=== PATIENT | female | born 1980 | race Caucasian/White ===

== ENCOUNTER → 2024-01-29 16:56 | Outpatient (REF) | payer BC, SELFPAY | LOC: RAD 16:56 | PROVIDERS: ATTENDING PHYSICIAN Physician Assistant; FAMILY PHYSICIAN Internal Medicine; OTHER PHYSICIAN Internal Medicine | DX: M54.50 Low back pain, unspecified (principal); M79.7 Fibromyalgia; M25.50 Pain in unspecified joint | CPT/HCPCS: 72100; 72200; 73130 ==

== ENCOUNTER 2024-08-09 18:43 | Inpatient (IN) | payer BC, SELFPAY ==
[2024-08-09 14:40] VITALS: BP 155/98
--- NOTE | 2024-08-09 15:23 | ED.GENMED ---
History of Present Illness
General
Chief Complaint: Back Pain
Source: patient
Exam Limitations: none
Time Seen by Provider: 08/09/24 14:59
Nursing documentation reviewed up to this point in time: agreed with
History of Present Illness
History of Present Illness:
43-year-old female with a past medical history of fibromyalgia, ankylosing spondylitis who presents to the emergency room for evaluation of low back pain and left leg weakness, left arm and leg numbness. Patient reports that she has been dealing
with chronic back pain related to ankylosing spondylitis. She takes multiple medications to control her pains including Tylenol and tramadol, as needed muscle relaxer. She says that this morning she woke up with acute worsening of her pain�she
says normally her pain is around a 5/10 and responds well to her medicines; she says that today her low back pain is 8/10 and did not respond to her medications. In addition she says that she has been dealing with the left leg weakness and
paresthesias for the past week or 2; she says she was referred to a neurologist for evaluation of this but has not yet seen anyone (appointment is in November). She says that this morning she woke up with an acute worsening of her left leg weakness
and numbness in her left leg. She says she is having difficulty walking due to the degree of weakness and numbness. She also reports that today she has been having some numbness in the left upper extremity most notably in the hand. She says that
this morning she was having some trouble expressing herself as well. She denies any headache. She denies any change in her vision. She has not had any saddle anesthesia. She denies any incontinence of her bowels. She says she occasionally has
incontinence when she sneezes or bears down with but no significant urinary incontinence. She denies any other complaints. She has not had any recent falls or trauma/injury.
Review of Systems
Review of Systems
All Other Systems: ROS reviewed and negative except as documented in HPI and ROS
Constitutional: Denies fever
Respiratory: Denies trouble breathing
Cardiac: Denies chest pain
ABD/GI: Denies abdominal pain
: Denies flank pain
Musculoskeletal: Reports back pain; Denies neck pain
Neurological: Reports weakness and numbness; Denies dizzy or headache
Phy Exam
Physical Exam
Physical Exam:
General: Awake, alert, oriented x3; appears uncomfortable
Head: Normocephalic, atraumatic
Eyes: Conjunctiva normal, subtle anisocoria with the right pupil slightly larger than left which is apparently baseline she says; pupils are briskly reactive to light bilaterally, extraocular movements are intact
Throat: Airway intact, handling secretions
Neck: Trachea midline, supple without meningismus
Lungs: Breathing comfortably no distress
Heart: Regular rate and rhythm
Abd: Soft, non distended, nontender
Back: She has some mild midline tenderness L5-S1, left paraspinal tenderness in this region as well, no right-sided tenderness
Neuro: Anisocoria as above but cranial nerves otherwise intact 2 through 12, speech fluid without dysarthria or aphasia, no limb ataxia; subjective sensory deficit distal left upper extremity and left lower extremity; on strength testing she has 5/5
strength proximally and distally in the upper extremities bilaterally; she has 5/5 strength maximally and distally right lower extremity; she has 4/5 strength on extension of the lower leg and dorsiflexion of the foot, 5/5 strength in plantarflexion
and 5/5 proximal strength in the hip on extension; DTRs intact bilaterally in the lower extremities
Skin: no rash
Extremities: No edema in extremities, equal pulses in all extremities
Scores
Heart Failure Risk
Heart Failure Risk Score: Not Applicable
Heart Score for Chest Pain Patients
STEMI patient?: Not applicable
Withdrawal Assessment of Alcohol
Withdrawal Assessment Completed?: Not applicable
Course
Orders/Labs/Results
Orders:
Orders
08/09/24 15:19
CT Head W/o Iv Contrast Urgent
Comment:
Reason For Exam: left arm and leg weakness
08/09/24 15:21
Ketorolac [Toradol] 15 mg IV NOW STA
Morphine Sulfate 4 mg IV NOW STA
08/09/24 15:22
NEUROLOGY CONSULT Urgent
Consulting Provider: Lupis Douglas
Was physician already notified: Yes
08/09/24 15:23
CT Lumbar Spine W/o Iv Contras Urgent
Comment:
Reason For Exam: worsening low back pain, LUE and LLE weakness/numb
08/09/24 15:30
Complete Blood Count/With Diff Urgent
Comprehensive Metabolic Panel Urgent
HCG, Serum Qualitative Screen Urgent
Comment: ADD ON
TSH Reflex To Free T4 Urgent
08/09/24 15:34
Electrocardiogram (*1) Urgent
Reason for Study: TIA/Stroke
EKG- Treatment ONCE
08/09/24 16:15
Add On- LAB Stat
Comments:: preg hcg for CT lumbar
Tests Added?: hcg preg.
08/09/24 17:26
MR Brain W/o & With Contrast Routine
Comment:
Reason For Exam: left sided weakness/senspry deficits
OK for patient to be off Cardiac Monitoring for MRI: No
Recent pill cam endoscopy?: No
08/09/24 17:35
B12 [Vitamin B12] Routine
CRP [C-Reactive Protein] Routine
ESR [Erythrocyte Sed Rate] Routine
Folate Routine
Vitamin B1, Whole Blood [S] Routine
Abnormal Lab Results
08/09/24
15:30
RBC 4.15 L 10^6/uL
(4.20-5.40)
MCH 31.8 H pg
(27.0-31.0)
Neutrophils % 41.8 L %
(42.2-75.2)
BUN 5 L mg/dl
(7-17)
08/09/24 15:30
08/09/24 15:30
Vital Signs
Initial and Last Documented VS:
Initial Vital Signs
Temp Pulse Resp BP Pulse Ox
36.9 C 81 18 155/98 98
08/09/24 14:40 08/09/24 14:40 08/09/24 14:40 08/09/24 14:40 08/09/24 14:40
Last Documented Vital Signs
Temp Pulse Resp BP Pulse Ox
36.9 C 72 16 131/67 99
08/09/24 14:40 08/09/24 16:00 08/09/24 16:00 08/09/24 16:00 08/09/24 16:00
MDM/Problems Addressed
Differential Diagnosis Includes:
Extensively back pain with left leg weakness and numbness which seem consistent with bulging/herniated disc and radiculopathy however left arm weakness/paresthesias and difficulty expressing herself would be atypical; must rule out stroke,
demyelinating disease, mass
MDM/Problems Addressed:
43-year-old female presents for evaluation of acute on chronic low back pain, subacute weakness in the left leg that became acutely worse this morning and now numbness in the left leg and arm. Hypertensive otherwise normal vitals. Physical exam as
above. No stroke alert activated given chronicity of symptoms but will plan to send for CT head. Will check labs including a CBC and a CMP, thyroid studies. Check CT of the lumbar region as well. Case discussed with neurology for evaluation.
Labs reviewed: CBC and CMP unremarkable. CT head shows no hemorrhage, small hypodensities in the putamen nonspecific. CT of the lumbar spine reviewed by me no acute pathology noted. Case discussed with neurology, recommended admission for further
workup including MRI to rule out demyelinating disease or stroke. Case discussed with hospitalist for admission.
Acute Exacerbation and/or Progression of Chronic Illness: HTN
*Radiology
Radiology exam reviewed: radiology read reviewed
*Pulse Oximetry
Patient hypoxic: no
*Critical Care Note
Total Time (30-74mins, 75-104mins- exclusive of procedures): Not Applicable
Data Reviewed
Source: patient and records
Patient Management
Discussion with other providers: Hospitalist (Discussed with hospitalist) and [facility] (Case discussed with neurology)
Escalation/DeEscalation of care consider admission/obs:
Admission indicated
ED Attending Note
-
Portions of this chart may have been created with voice recognition software.� Occasional wrong word or��sound alike� substitutions may have occurred due to the inherent limitations of voice recognition software.
Discharge Plan
Departure
Patient Disposition: Admit
Date of Disposition: 08/09/24
Time of Disposition: 17:51
Admit to doctor: Kristi
Presentation/result/management discussed w/ accepting MD/DO: Hospitalist
Discharge Problem:
Left-sided weakness, Acute on chronic low back pain
Prescriptions:
No Action
pantoprazole 40 mg tablet,delayed release (DR/EC)
40 mg PO DAILY 14 Days Qty: 14 0RF
Referrals:
Chavo Currie MD [Family Provider] -
Interventions
Interventions:
*Risk Screen - Suicide Last Done: 08/09/24 14:40
*General Assessment Last Done: 08/09/24 14:40
*Neglect/Abuse Screening Last Done: 08/09/24 14:40
ED- Fall Risk Assessment Last Done: 08/09/24 14:50
ED-Musculoskeletal Assessment Last Done: 08/09/24 14:50
ED- Neurological Assessment Last Done: 08/09/24 14:50
Discharge Date and Time
Print Language: BULGARIAN
[2024-08-09] MEDS: TORADOL 15 MG IV (15:37)
[2024-08-09] MEDS: MORPHINE SULFATE 4 MG IV (15:37)
[2024-08-09 15:38] LABS: % Basophils 1.6 % (0-2); % Eosinophils 4.6 % (0-6); % Immature Granulocytes 0.1 % (0-0.5); % Lymphocytes 43.5 % (20.5-51.1); % Monocytes 8.4 % (1.7-9.3); % Neutrophils 41.8 % (42.2-75.2); Absolute Basophils 0.1 10^3/uL (0-0.2); Absolute Eosinophils 0.3 10^3/uL (0-0.7); Absolute Monocytes 0.6 10^3/uL (0.1-0.6); Absolute Neutrophils 2.9 10^3/uL (1.4-6.5); Hemoglobin 13.2 g/dL (12.0-16.0); Mean Corp Hgb Conc. 35.7 g/dL (33.0-37.0); Mean Corpuscular Hgb 31.8 pg (27.0-31.0); Mean Corpuscular Volume 89.2 fL (81.0-99.0); Mean Platelet Volume 9.6 fL (7.4-10.4); Nucleated Red Blood Cells % 0 %; Platelet Count 208 10^3/uL (130-400); Red Blood Cell Count 4.15 10^6/uL (4.20-5.40); Red Cell Dist. Width 11.7 % (11.5-14.5); White Blood Cell Count 6.9 10^3/uL (4.8-10.8)
[2024-08-09 15:59] LABS: ALT (SGPT) 25 U/L (0-35); AST (SGOT) 25 U/L (14-36); Albumin 4.8 g/dl (3.5-5.0); Alkaline Phosphatase 41 U/L (38-126); Blood Urea Nitrogen 5 mg/dl (7-17); Calcium 9.8 mg/dl (8.4-10.2); Carbon Dioxide 28 mmol/L (22-30); Chloride 103 mmol/L (98-107); Glucose 79 mg/dl (70-99); Potassium 4.2 mmol/L (3.5-5.1); Sodium 141 mmol/L (135-145); Total Bilirubin 0.4 mg/dl (0.2-1.3); eGFR > 60.00
[2024-08-09 16:00] VITALS: BP 131/67
[2024-08-09 16:31] LABS: TSH Reflex To Free T4 0.66 uIU/ml (0.47-4.68)
--- NOTE | 2024-08-09 16:37 | CON.NEURO ---
Consultation
Order
Date of Consultation: 08/09/24
Requesting Provider:
Reason for Consult: Leg numbness, expressive aphasia,
CC: left weakness
HPI: This is a 43-year-old woman who presented to [facility] on August 09, 2024 with with motor and sensory deficits
Ms. Panda states that she developed gradual weakness in the left leg following initiation of Humira that she stopped a month ago. She states starting a week ago her left leg became weak, making walking difficult. She endorses worsening of
chronic lower back pain worse with torso extension, standing and walking. She also experiences tingling in the left toes and II-V digits of the left hand. Current pain management includes high-dose of NSAIDs, Lyrica 25, Tylenol and tramadol.
Ms. Panda admits chronic urinary urgency, going to the bathroom about 15 times a day and waking up once or twice at night. She recently experienced urinary incontinence while talking to someone. She denies any numbness in the right leg, changes
in swallowing, or recent vaccinations.
LS spine, SI XR(12/29/2023)-mild degenerative changes of the bilateral sacroiliac joints.
Minimal disc space narrowing at L5-S1.
ER VS: 155/98, 81, afebrile.
EKG: NSR, QTc Int : 427 ms.
ER MAR: Ketorolac�15 mg, morphine sulfate�4 mg
PDMP:Clonazepam 1 Mg�60 mg filled in on 07/31/2024, 05/21/2024, 04/20/2024, 03/06/2024
Pregabalin 25 Mg 60 caps filled in on 08/04/2024
Tramadol Hcl 50 Mg 90 tabs filled in on 07/16/2024, 05/27/2024
Labs: Normal WBCs, glucose, GFR, TSH. Beta-hCG�pending
PMH: ankylosing spondylitis, Ig A deficiency, bipolar DO, ZION, ETOh addiction in remission
PSH:none
SH: ; active smoker- 6-8 cigarettes per day;
FH:RA, SLE
All:NKDA
ROS:Constitutional: Negative. Negative for chills, fever and unexpected weight change.
HENT: Positive for left hearing impairment
Eyes: Negative. Negative for photophobia, pain and visual disturbance.
Respiratory: Negative for cough, choking and shortness of breath.
Cardiovascular: Negative for chest pain, palpitations and leg swelling.
Gastrointestinal: Negative for abdominal pain and vomiting.
Endocrine: Negative. Negative for cold intolerance.
Genitourinary: Positive for urinary urgency, incontinence
Musculoskeletal: Positive for chronic back pain
Skin: Negative for rash.
Allergic/Immunologic: Negative. Negative for immunocompromised state.
Neurological: Positive for left leg weakness and left leg and arm numbness, imbalance, R ptosis
General: Well developed. In no acute distress.
Cardio: Regular rate and rhythm without murmur. Extremities are without cyanosis or edema.
Neuro:
Mental Status: Alert, oriented to person, place, and date. Normal attention and recall. Good fund of knowledge. Follows complex requests across the midline. Comprehension, naming, and repetition intact. Immediate and delayed recall 3/3.
Cranial Nerves: . Pupils are equally round and reactive to light. EOMs full. Visual kong full to confrontation. Mild right ptosis. No nystagmus. V1-V3 intact to light touch and pinprick bilaterally, symmetric. Face symmetric. Normal hearing
AU. The palate elevated well. SCMs and traps 5/5. Tongue midline. No dysarthria.
Motor: Normal bulk and tone. No pronator or arm drift. Strength 5/5 throughout except for left proximal leg weakness (partially pain limited). No clonus.
Reflexes: 2+ throughout the upper extremities and 3+knees. 2/2 in AJs. Plantar responses flexor bilaterally. Negative Pat's bilaterally
Sensory: Normal vibration at the toes
Coordination: No dysmetria or tremor.
Gait: deferred
Assessment and Plan:
I. Left hemisensory motor deficits. Rule out [employer] demyelinating disease
II. Ankylosing spondylitis, female
III. Chronic back pain
-Fall precautions
-Please obtain brain MRI with and without gadolinium
-Titrate Lyrica by 25 mg as tolerated
-Please check vitamin B12, thiamine, ESR, CRP
- PT
-Will follow
I personally reviewed all radiology and labs along with past medical records pertinent to current medical problems. Total time spent in patient care is 60 minutes.
Thank you for allowing us to participate in the care of this patient. We will continue to follow. Please do not hesitate to contact us with any questions or concerns.
Subjective/Objective
Subjective Data
Date of Service: August 09, 2024
Objective Data
Vital Signs
Temp Pulse Resp BP Pulse Ox
36.9 C 81 18 155/98 98
08/09/24 14:40 08/09/24 14:40 08/09/24 14:40 08/09/24 14:40 08/09/24 14:40
Lab Results
08/09/24 15:30
08/09/24 15:30
Sodium 141 mmol/L (135-145) 08/09/24 15:30
Potassium 4.2 mmol/L (3.5-5.1) 08/09/24 15:30
BUN 5 mg/dl (7-17) L 08/09/24 15:30
Glucose 79 mg/dl (70-99) 08/09/24 15:30
Calcium 9.8 mg/dl (8.4-10.2) 08/09/24 15:30
Patient Allergies
gluten Allergy (Verified 08/09/24 14:39)
Unknown
Medications
-
Home Medications
�Medication �Instructions �Recorded
pantoprazole 40 mg tablet,delayed 40 mg PO DAILY 14 days #14 tabs 06/26/22
release
Vital Signs and Labs
-
Vital Signs and Labs:
Vital Signs
Temp Pulse Resp BP Pulse Ox
36.9 C 72 16 131/67 99
08/09/24 14:40 08/09/24 16:00 08/09/24 16:00 08/09/24 16:00 08/09/24 16:00
Lab Results
08/09/24 15:30
08/09/24 15:30
Sodium 141 mmol/L (135-145) 08/09/24 15:30
Potassium 4.2 mmol/L (3.5-5.1) 08/09/24 15:30
BUN 5 mg/dl (7-17) L 08/09/24 15:30
Glucose 79 mg/dl (70-99) 08/09/24 15:30
Calcium 9.8 mg/dl (8.4-10.2) 08/09/24 15:30
Home Medications
-
Home Medications
pantoprazole 40 mg tablet,delayed release 40 mg PO DAILY 14 days #14 tabs 06/26/22
[2024-08-09 16:41] LABS: HCG, Serum Qualitative Screen Negative
[2024-08-09 18:00] VITALS: BP 124/87
[2024-08-09 18:03] LABS: C-Reactive Protein < 5.00 mg/L (0.0-10.00)
[2024-08-09 18:09] LABS: Erythrocyte Sed Rate 7 mm/hour (0-20)
--- NOTE | 2024-08-09 18:20 | HPS.HSE ---
Addendum entered and electronically signed by Sarath Berry MD 08/09/24 18:33:
Allergies
Allergy/AdvReac Type Severity Reaction Status Date / Time
gluten Allergy Unknown Verified 08/09/24 14:39
Home Medications
acetaminophen 325 mg tablet (Tylenol) 650 mg PO Q6HPRN PRN mild pain 08/09/24
ascorbic acid (vitamin C) 500 mg tablet (Vitamin C) 500 mg PO DAILY 08/09/24
buspirone 10 mg tablet 10 mg PO HS 08/09/24
calcium carbonate (Tums) 200 mg PO BIDPRN PRN gerd 08/09/24
calcium polycarbophil 625 mg tablet (FiberCon) 625 mg PO DAILY 08/09/24
cholecalciferol (vitamin D3) 25 mcg (1,000 unit) tablet (Vitamin D3) 25 mcg PO DAILY 08/09/24
clonazepam 1 mg tablet 1 mg PO BIDPRN PRN anxiety 08/09/24
escitalopram oxalate 10 mg tablet (Lexapro) 10 mg PO DAILY 08/09/24
lamotrigine 200 mg tablet (Lamictal) 200 mg PO DAILY 08/09/24
loperamide 2 mg tablet 2 mg PO Q4HPRN PRN gluten allergy 08/09/24
nabumetone 500 mg tablet 500 mg PO BID 08/09/24
pregabalin 25 mg capsule (Lyrica) 25 mg PO BID 08/09/24
sumatriptan succinate 50 mg tablet (Imitrex) 0 mg PO .COMPLEX 08/09/24
tizanidine 4 mg tablet 4 mg PO BIDPRN PRN muscle pains 08/09/24
tramadol 50 mg tablet 50 mg PO Q8HPRN PRN moderate pains 08/09/24
trazodone 50 mg tablet 50 mg PO HSPRN PRN sleep 08/09/24
turmeric 400 mg capsule 400 mg PO DAILY 08/09/24
vitamin B complex 1 tab PO DAILY 08/09/24
vitamin K2 45 mcg capsule 45 mcg PO DAILY 08/09/24
Original Note:
Family Physician
-
Family Physician: Chavo Currie
Chief Complaint
-
left sided weakness
History of Present Illness
43-year-old female past medical history of fibromyalgia, ankylosing spondylitis, lumbar degenerative disc disease with left-sided sciatica, chronic lower back pain, chronic urinary urgency, IgA deficiency, bipolar disorder, generalized anxiety
disorder, former alcohol use disorder in remission, presenting for leg numbness and expressive aphasia.
Patient has been having chronic lower back pain over the past 1-1/2-year and saw a rheumatology and was diagnosed with ankylosing spondylitis for which she was started on Humira which she was taking for 4 months. Around 2 weeks ago Humira was
stopped because she started having weakness of the left lower leg with flatness of the foot inhibiting walking. She was also having intermittent numbness and tingling of the leg as well as intermittent numbness and tingling of the left hand.
This morning she woke up with severe pain across her lower back with radiation down her left leg as well as numbness of the left leg.
She denied any difficulty speaking or swallowing. Denies any facial droop. Denied headache or visual symptoms.
She has chronic urinary urgency but this has gotten worse over the past few weeks and sometimes leaks urine. Denies any stool incontinence. Denies difficulty urinating.
She is a former alcoholic but has not drank alcohol in 7-month. She smokes under half a pack of cigarettes per day. She denies drugs.
She denies any family history of neurological symptoms but does have a family history of autoimmune disorders including rheumatoid arthritis and lupus.
Medical History
Past Medical History
Past Medical History: Reports Other ( fibromyalgia, ankylosing spondylitis, lumbar degenerative disc disease with left-sided sciatica, chronic lower back pain, chronic urinary urgency, IgA deficiency, bipolar disorder, generalized anxiety disorder,
former alcohol use disorder in remission)
Past Surgical History: Reports Other (wisdom teeth )
Social History
Tobacco: Smoker
Drug: None
Family History
Family History: Other (rheumatoid arthritis and lupus.)
Allergies / Home Medications
Allergies reflects when Allergies were last updated in [facility].
Home Medications with original date entered in [facility]
Allergy/Medication List:
Allergies
Allergy/AdvReac Type Severity Reaction Status Date / Time
gluten Allergy Unknown Verified 08/09/24 14:39
Review of Systems
-
History Source: Patient
A 12 point ROS was completed and negative except as noted: Yes
Constitutional: Reports No Symptoms
EENT: Reports No Symptoms
Respiratory: Reports No Symptoms
Cardiac: Reports No Symptoms
Abdomen/GI: Reports No Symptoms
: Reports No Symptoms
Musculoskeletal: Reports No Symptoms
Skin: Reports No Symptoms
Neurological: Reports See HPI
Endocrine: Reports No Symptoms
Hematologic/Lymphatic: Reports No Symptoms
Psych: Reports No Symptoms
Physical Exam
Vital Signs
Vital Signs
Temp Pulse Resp BP Pulse Ox
98.5 F 72 16 131/67 99
08/09/24 14:40 08/09/24 16:00 08/09/24 16:00 08/09/24 16:00 08/09/24 16:00
Physical Exam
General: Well Developed, Well Nourished and No Apparent Distress
HEENT: NormoCephalic, Moist mucous membranes and Atraumatic
Respiratory: Clear
Cardiac: S1/S2 and Regular Rhythm; No Murmur or Rub
GI: Soft, Non Tender, Non Distended and Normal Bowel Sounds; No Organomegaly
Rectal: Deferred by Provider
Musculoskeletal: No Clubbing, No Cyanosis and No Edema
Skin: No Rash
Neuro: Other (left sided upper and lower extremity weakness )
Laboratory Results
-
08/09/24 15:30
08/09/24 15:30
Laboratory Results
Total Bilirubin 0.4 mg/dl (0.2-1.3) 08/09/24 15:30
AST 25 U/L (14-36) 08/09/24 15:30
ALT 25 U/L (0-35) 08/09/24 15:30
Alkaline Phosphatase 41 U/L (38-126) 08/09/24 15:30
Data Reviewed
-
Lab Data: Labs Reviewed by me
Old Records: Reviewed
Impression/Plan
-
IMPRESSION:
PLAN:
# Left-sided hemisensory motor/ sensory deficits concerning for CVA versus demyelinating disorder
-CT head shows small hypodensities adjacent to the bilateral putamen nonspecific which could be infarctions
-Lumbar spine CT result pending
-Check MRI brain with and without contrast
-Check B12, thiamine, ESR/CRP
-PT/OT
-Neurology following
Ankylosing spondylitis/chronic back pain
-Previously on Humira which was discontinued 2 weeks ago due to symptoms
History of lumbar degenerative disc disease with left-sided sciatica
-Has received spinal epidural injections in the past
-Continue nabumetone
Fibromyalgia
-Continue pregabalin, tramadol
Chronic urinary urgency
-Bladder scan to evaluate for neurogenic bladder
IgA deficiency
-Not on treatment
Bipolar disorder
-Continue Lamictal
Generalized anxiety disorder
-Continue Lexapro, trazodone, BuSpar
Former alcohol use disorder in remission
Active smoker
Full code
DVT prophylaxis�SCDs
Regular diet
[2024-08-09 19:09] LABS: Folate 12.1 ng/ml (2.76-20); Vitamin B12 710 pg/ml (239-931)
[2024-08-09 19:49] VITALS: BP 132/92; BMI 20.4
[2024-08-09] MEDS: ZANAFLEX 4 MG PO (20:17)
[2024-08-09] MEDS: LYRICA 25 MG PO (20:17)
[2024-08-09] MEDS: ULTRAM 50 MG PO (20:17)
[2024-08-09] MEDS: BUSPAR 10 MG PO (20:17)
[2024-08-09] MEDS: RELAFEN 500 MG PO (20:38)
[2024-08-09 23:30] VITALS: BP 104/56
[2024-08-10] VITALS (8 sets, daily range): BP systolic 99–114; BP diastolic 65–75; PULSE 62–63; O2SAT 99
[2024-08-10] MEDS: TYLENOL 650 MG PO ×2 (01:16→08:10)
[2024-08-10] MEDS: KLONOPIN 1 MG PO (01:18)
[2024-08-10] MEDS: ULTRAM 50 MG PO ×2 (04:18→12:18)
[2024-08-10 06:07] LABS: % Basophils 1.5 % (0-2); % Eosinophils 4.6 % (0-6); % Immature Granulocytes 0.2 % (0-0.5); % Lymphocytes 49.9 % (20.5-51.1); % Neutrophils 34.8 % (42.2-75.2); Absolute Basophils 0.1 10^3/uL (0-0.2); Absolute Eosinophils 0.2 10^3/uL (0-0.7); Absolute Monocytes 0.4 10^3/uL (0.1-0.6); Absolute Neutrophils 1.4 10^3/uL (1.4-6.5); Hematocrit 34.9 % (37.0-47.0); Hemoglobin 12.6 g/dL (12.0-16.0); Mean Corp Hgb Conc. 36.1 g/dL (33.0-37.0); Mean Corpuscular Hgb 32.9 pg (27.0-31.0); Mean Corpuscular Volume 91.1 fL (81.0-99.0); Mean Platelet Volume 9.7 fL (7.4-10.4); Nucleated Red Blood Cells % 0 %; Platelet Count 175 10^3/uL (130-400); Red Blood Cell Count 3.83 10^6/uL (4.20-5.40); Red Cell Dist. Width 11.5 % (11.5-14.5); White Blood Cell Count 4.1 10^3/uL (4.8-10.8)
[2024-08-10 06:41] LABS: ALT (SGPT) 21 U/L (0-35); AST (SGOT) 23 U/L (14-36); Albumin 3.9 g/dl (3.5-5.0); Alkaline Phosphatase 34 U/L (38-126); Blood Urea Nitrogen 5 mg/dl (7-17); Calcium 9.4 mg/dl (8.4-10.2); Carbon Dioxide 27 mmol/L (22-30); Chloride 104 mmol/L (98-107); Estimated Creatinine Clearance 84 ml/min; Glucose 75 mg/dl (70-99); Potassium 4.1 mmol/L (3.5-5.1); Sodium 138 mmol/L (135-145); Total Bilirubin 0.6 mg/dl (0.2-1.3); Total Protein 5.9 g/dl (6.3-8.2); eGFR > 60.00
[2024-08-10] MEDS: RELAFEN 500 MG PO ×2 (08:04→20:21)
[2024-08-10] MEDS: LAMICTAL 200 MG PO (08:04)
[2024-08-10] MEDS: VITAMIN D3 (cholecalciferol) 25 MCG PO (08:05)
[2024-08-10] MEDS: VITAMIN C 500 MG PO (08:05)
[2024-08-10] MEDS: LEXAPRO 10 MG PO (08:05)
[2024-08-10] MEDS: FIBERCON 625 MG PO (08:05)
[2024-08-10] MEDS: LYRICA 25 MG PO ×2 (08:05→20:20)
[2024-08-10] MEDS: B COMPLEX w/VITAMIN C 1 CAPLET PO (08:06)
[2024-08-10] MEDS: ZANAFLEX 4 MG PO ×2 (08:10→20:26)
--- NOTE | 2024-08-10 10:24 | W.PN.HOSP.TC ---
Today's Communication/Plan
-
Impression:
43 female past ministry of fibromyalgia, ankylosing spondylitis, lumbar degenerative disc disease with left-sided sciatica, chronic lower back pain, chronic urinary urgency, JUAREZ deficiency, bipolar disorder presents for left leg numbness and
expressive aphasia.
Plan:
#Left-sided hemisensory motor deficits concerning for CVA versus demyelinating disorder
Symptoms and presentation are concerning for multiple sclerosis
CT head showing small hypodensities adjacent to bilateral putamen, nonspecific could be infarctions
Lumbar spine CT demonstrated mild to moderate canal stenosis, with asymmetric left disc bulge
Brain MRI with and without contrast demonstrated no acute intracranial abnormality, no acute infarct. See data section
Neurology following
Plan/workup per neurology
PT OT
B12, folate, CRP all within normal limits
Vitamin D level pending
#Ankylosing spondylitis/chronic lower back pain
Previously on Humira, discontinued 2 weeks ago due to side effects
Pain management with tramadol 50 every 8 as needed
#Lumbar disc degenerative disease with left-sided sciatica
CT scan is consistent with known history
Has received spinal epidural injections in the past
Continue nabumetone
#Fibromyalgia
Continue home pregabalin and tramadol
#Chronic urinary urgency
Bladder scan pending to evaluate for neurogenic bladder
#IgA deficiency
Not currently on treatment
#Bipolar disorder
Continue home Lamictal
#General Anxiety disorder
Continue home Lexapro, trazodone, BuSpar
Full code
DVT prophylaxis SCDs
Regular diet
Data:
Head CT without contrast
No acute intracranial hemorrhage.
There are small hypodensities adjacent to the bilateral putamen which are nonspecific. These may represent prominent perivascular spaces however small infarctions could appear similar.
Lumbar spine CT
There is degenerative disc disease at L4-L5 and L5-S1.
At L4-L5 there is mild/moderate canal stenosis and mild bilateral neuroforaminal narrowing.
At L5-S1 there is asymmetric to left disc bulge with resultant mild canal stenosis, left lateral recess narrowing and mild left-sided neuroforaminal narrowing.
Brain MRI with and without contrast
No acute intracranial abnormality. No acute infarct. Findings likely reflecting slightly prominent perivascular spaces associated with the basal ganglia, bilaterally. Remote insult/infarct with encephalomalacia felt to be less likely.
Assessment / Plan
Assessment / Plan
Anticipated Discharge: Within 24 hours
Subjective/Interval History
-
Date of Service: August 10, 2024
No acute events overnight, patient still endorsing numbness in hands
Objective Data
-
Labs:
Laboratory Results
08/10/24
05:56
WBC 4.1 L
Hgb 12.6
Hct 34.9 L
Plt Count 175
Sodium 138
Potassium 4.1
Chloride 104
Carbon Dioxide 27
BUN 5 L
Creatinine 0.8
Glucose 75
Calcium 9.4
Total Bilirubin 0.6
AST 23
ALT 21
Alkaline Phosphatase 34 L
Vital Signs:
Vital Signs
Temp Pulse Resp BP Pulse Ox
97.8 F 58 16 106/67 97
08/10/24 07:15 08/10/24 07:15 08/10/24 07:15 08/10/24 07:15 08/10/24 07:15
I&O
08/09/24 08/10/24 08/11/24
07:59 06:59 06:59
Intake Total
Balance
Review of Systems
-
History Source: Patient
Constitutional: Reports No Symptoms
EENT: Reports Blurry Vision and Other (Right sided ear fullness)
Respiratory: Reports No Symptoms
Cardiac: Reports No Symptoms
Abdomen/GI: Reports No Symptoms
Neuro: Reports Numbness
Physical Exam
-
General: Well Developed, Well Nourished, No Apparent Distress, Comfortable and Conversant
Respiratory: Clear to Auscultation
Cardiac: Regular Rhythm and S1/S2
GI: Soft, Nontender and Nondistended
Skin: Warm and Dry
Neuro: Awake, Alert, Oriented, AO x 3, Central Nerve's Intact, No Sensory Deficits and Other (Left sided weakness compared to right on dorsi and plantarflexion, and hip flexion. Upper extremities equal in strength. Sensation equal throughout)
Psych: Calm and Intact Judgement/Insight
Data Reviewed
-
CT Scan: Report Reviewed by me and Discussed with Physician
MRI: Report Reviewed by me and Discussed with Physician
Labs: Labs Reviewed by me and Discussed with Physician
--- NOTE | 2024-08-10 13:13 | CM ---
CM following re: discharge planning.
Reviewed pt's chart, met with pt.
Pt is a 43 year old female admitted with primary dx of Left-sided hemisensory motor deficits concerning for CVA versus demyelinating disorder. MRI today.
Pt reports she lives with and 3 children 6,9 and 11 year of age in a 2SH, 2 steps to enter. pt described herself as independent in all areas [employer], drives, works.
PCP: Chavo Currie
Pharmacy: [facility]
D/C plan: home no needs. family to transport.
CM will follow with discharge plan updates as hospitalization progresses
--- NOTE | 2024-08-10 15:51 | W.PN.NEURO.1 ---
Today's Communication / Plan
-
.
Subjective/Objective
Subjective Data
Date of Service: August 10, 2024
Neurology follow-up note
Ms. Panda states that her left leg numbness has resolved. She continues to have back pain and left leg weakness. Brain MRI sw/wo tanya howed no acute infarcts and prominent perivascular spaces in BL basal ganglia.
LS spine MRI wo tanya-no significant neuroforaminal stenosis
Labs: Normal TSH, folate, vitamin B12�710.
PMH: ankylosing spondylitis, Ig A deficiency, bipolar DO, TANYA, ETOh addiction in remission
PSH:none
SH: ; active smoker- 6-8 cigarettes per day;
FH:RA, SLE
All:NKDA
ROS:Constitutional: Negative. Negative for chills, fever and unexpected weight change.
HENT: Positive for left hearing impairment
Eyes: Negative. Negative for photophobia, pain and visual disturbance.
Respiratory: Negative for cough, choking and shortness of breath.
Cardiovascular: Negative for chest pain, palpitations and leg swelling.
Gastrointestinal: Negative for abdominal pain and vomiting.
Endocrine: Negative. Negative for cold intolerance.
Genitourinary: Positive for urinary urgency, incontinence
Musculoskeletal: Positive for chronic back pain
Skin: Negative for rash
Neurological: Positive for left leg weakness
General: Well developed. In no acute distress.
Cardio: Regular rate and rhythm without murmur. Extremities are without cyanosis or edema.
Neuro:
Mental Status: Alert, oriented to person, place, and date. Normal attention and recall. Good fund of knowledge. Follows complex requests across the midline. Comprehension, naming, and repetition intact. Immediate and delayed recall 3/3.
Cranial Nerves: . Pupils are equally round and reactive to light. EOMs full. Visual kong full to confrontation. No nystagmus. V1-V3 intact to light touch and pinprick bilaterally, symmetric. Face symmetric. Normal hearing AU. The palate
elevated well. SCMs and traps 5/5. Tongue midline. No dysarthria.
Motor: Normal bulk and tone. No pronator or arm drift. Strength 5/5 throughout except for left proximal leg weakness (partially pain limited). No clonus.
Reflexes: 2+ throughout the upper extremities and 3+knees. 2/2 in AJs. Plantar responses flexor bilaterally. Negative Pat's bilaterally
Sensory: Normal vibration at the toes
Coordination: No dysmetria or tremor.
Gait: normal stance, base, arm swing. Able to arise from kneeling position.
Assessment and Plan:
I. Left hemisensory deficits.
II. Ankylosing spondylitis, female
III. Chronic back pain, subjective left leg pain
-Fall precautions
-Please obtain brain MRI with and without gadolinium
-Titrate Lyrica by 25 mg as tolerated
-Please f/u vit B1, MG panel
-C spine MRI wo tanya
-OP NCS/EMG of LUE/LE
-Will follow
I personally reviewed all radiology and labs along with past medical records pertinent to current medical problems. Total time spent in patient care is 35 minutes.
Thank you for allowing us to participate in the care of this patient. We will continue to follow. Please do not hesitate to contact us with any questions or concerns.
Objective Data
Vital Signs
Temp Pulse Resp BP Pulse Ox
36.4 C 58 16 109/71 100
08/10/24 11:27 08/10/24 11:27 08/10/24 11:27 08/10/24 11:27 08/10/24 11:27
Lab Results
08/10/24 05:56
08/10/24 05:56
Sodium 138 mmol/L (135-145) 08/10/24 05:56
Potassium 4.1 mmol/L (3.5-5.1) 08/10/24 05:56
BUN 5 mg/dl (7-17) L 08/10/24 05:56
Glucose 75 mg/dl (70-99) 08/10/24 05:56
Calcium 9.4 mg/dl (8.4-10.2) 08/10/24 05:56
Vitamin B12 710 pg/ml (490-507) 08/09/24 17:35
Patient Allergies
gluten Allergy (Verified 08/09/24 14:39)
Unknown
Vital Signs and Labs
-
Vital Signs and Labs:
Vital Signs
Temp Pulse Resp BP Pulse Ox
36.4 C 58 16 109/71 100
08/10/24 11:27 08/10/24 11:27 08/10/24 11:27 08/10/24 11:27 08/10/24 11:27
Lab Results
08/10/24 05:56
08/10/24 05:56
Sodium 138 mmol/L (135-145) 08/10/24 05:56
Potassium 4.1 mmol/L (3.5-5.1) 08/10/24 05:56
BUN 5 mg/dl (7-17) L 08/10/24 05:56
Glucose 75 mg/dl (70-99) 08/10/24 05:56
Calcium 9.4 mg/dl (8.4-10.2) 08/10/24 05:56
Vitamin B12 710 pg/ml (582-917) 08/09/24 17:35
Medications
-
Medications:
Generic Name Dose Route Start Last Admin
Trade Name Freq PRN Reason Stop Dose Admin
Acetaminophen 650 mg 08/09/24 19:25 08/10/24 08:10
Acetaminophen 325 Mg Tablet PO 09/06/24 19:24 650 mg
Q4HPRN PRN Administration
mild pain/PERRIN/temp> 100.4F
Ascorbic Acid 500 mg 08/10/24 08:00 08/10/24 08:05
Ascorbic Acid 500 Mg Tablet PO 12/01/24 07:59 500 mg
DAILY AMARILIS Administration
Buspirone HCl 10 mg 08/09/24 22:00 08/09/24 20:17
Buspirone 10 Mg Tablet PO 09/06/24 21:59 10 mg
HS AMARILIS Administration
Calcium Carbonate 200 mg 08/09/24 19:25
Calcium Antacid 200 Mg (Calcium Carbonate 500 Mg) Chew Tablet PO 09/06/24 19:24
BIDPRN PRN
gerd
Calcium Polycarbophil 625 mg 08/10/24 08:00 08/10/24 08:05
Calcium Polycarbophil 625 Mg Tablet PO 09/07/24 07:59 625 mg
DAILY AMARILIS Administration
Cholecalciferol 25 mcg 08/10/24 08:00 08/10/24 08:05
Cholecalciferol (Vitamin D3) 25 Mcg Tablet (1,000 Units) PO 09/07/24 07:59 25 mcg
DAILY AMARILIS Administration
Clonazepam 1 mg 08/09/24 19:25 08/10/24 01:18 EDT
Clonazepam 1 Mg Tablet PO 09/06/24 19:24 1 mg
BIDPRN PRN Administration
anxiety
Escitalopram Oxalate 10 mg 08/10/24 08:00 08/10/24 08:05
Escitalopram 10 Mg Tablet PO 09/07/24 07:59 10 mg
DAILY AMAIRLIS Administration
Lamotrigine 200 mg 08/10/24 08:00 08/10/24 08:04
Lamotrigine 100 Mg Tablet PO 09/07/24 07:59 200 mg
DAILY AMARILIS Administration
Loperamide HCl 2 mg 08/09/24 20:37
Loperamide 2 Mg Capsule PO 09/06/24 20:36
Q4HPRN PRN
gluten allergy
Nabumetone 500 mg 08/09/24 20:00 08/10/24 08:04
Nabumetone 500 Mg Tablet PO 09/06/24 19:59 500 mg
BID AMARILIS Administration
Vitamin K2 45 Mcg 0 mcg 08/10/24 08:00
Capsule 1 Po Cap Po PO 09/07/24 07:59
Daily DAILY AMARILIS
Pregabalin 25 mg 08/09/24 20:00 08/10/24 08:05
Pregabalin 25 Mg Capsule PO 09/06/24 19:59 25 mg
BID AMARILIS Administration
Sodium Chloride 0 flush 08/09/24 20:00
Sodium Chloride 0.9% (Flush) Syringe IV 09/06/24 19:59
PER PROTOCOL AMARILIS
Tizanidine HCl 4 mg 08/09/24 19:25 08/10/24 08:10
Tizanidine 4 Mg Tablet PO 09/06/24 19:24 4 mg
BIDPRN PRN Administration
muscle pains
Tramadol HCl 50 mg 08/09/24 19:25 08/10/24 12:18
Tramadol Hcl 50 Mg Tablet PO 09/06/24 19:24 50 mg
Q8HPRN PRN Administration
moderate pains
Trazodone HCl 50 mg 08/09/24 19:25
Trazodone 50 Mg Tablet PO 09/06/24 19:24
HSPRN PRN
sleep
Vitamin B Complex/Vitamin C 1 caplet 08/10/24 08:00 08/10/24 08:06
Vitamin B Complex With Vitamin C Caplet PO 09/07/24 07:59 1 caplet
DAILY AMARILIS Administration
Home Medications
-
Home Medications
acetaminophen 325 mg tablet (Tylenol) 650 mg PO Q6HPRN PRN mild pain 08/09/24
ascorbic acid (vitamin C) 500 mg tablet (Vitamin C) 500 mg PO DAILY Supplement 08/09/24
buspirone 10 mg tablet 10 mg PO HS Mental Health/Anxiety 08/09/24
calcium carbonate (Tums) 200 mg PO BIDPRN PRN gerd 08/09/24
calcium polycarbophil 625 mg tablet (FiberCon) 625 mg PO DAILY Gastrointestinal Issue 08/09/24
cholecalciferol (vitamin D3) 25 mcg (1,000 unit) tablet (Vitamin D3) 25 mcg PO DAILY Supplement 08/09/24
clonazepam 1 mg tablet 1 mg PO BIDPRN PRN anxiety 08/09/24
escitalopram oxalate 10 mg tablet (Lexapro) 10 mg PO DAILY Mental Health/Anxiety 08/09/24
lamotrigine 200 mg tablet (Lamictal) 200 mg PO DAILY Seizures 08/09/24
loperamide 2 mg tablet 2 mg PO Q4HPRN PRN gluten allergy 08/09/24
nabumetone 500 mg tablet 500 mg PO BID Pain 08/09/24
pregabalin 25 mg capsule (Lyrica) 25 mg PO BID Pain 08/09/24
sumatriptan succinate 50 mg tablet (Imitrex) 0 mg PO .COMPLEX MIGRAINE 08/09/24
tizanidine 4 mg tablet 4 mg PO BIDPRN PRN muscle pains 08/09/24
tramadol 50 mg tablet 50 mg PO Q8HPRN PRN moderate pains 08/09/24
trazodone 50 mg tablet 50 mg PO HSPRN PRN sleep 08/09/24
turmeric 400 mg capsule 400 mg PO DAILY Supplement 08/09/24
vitamin B complex 1 tab PO DAILY Supplement 08/09/24
vitamin K2 45 mcg capsule 45 mcg PO DAILY Supplement 08/09/24
[2024-08-10] MEDS: ROXICODONE 5 MG PO (16:44)
[2024-08-10] MEDS: SENOKOT-S 1 TABLET PO (20:24)
[2024-08-10] MEDS: BUSPAR 10 MG PO (21:31)
[2024-08-11 03:16] VITALS: BP 107/66
[2024-08-11] MEDS: KLONOPIN 1 MG PO (06:29)
[2024-08-11] MEDS: ULTRAM 50 MG PO (06:29)
[2024-08-11 07:35] VITALS: BP 115/76
[2024-08-11] MEDS: LYRICA 25 MG PO (08:09)
[2024-08-11] MEDS: LEXAPRO 10 MG PO (08:09)
[2024-08-11] MEDS: VITAMIN C 500 MG PO (08:09)
[2024-08-11] MEDS: FIBERCON 625 MG PO (08:09)
[2024-08-11] MEDS: LAMICTAL 200 MG PO (08:10)
[2024-08-11] MEDS: RELAFEN 500 MG PO (08:10)
[2024-08-11] MEDS: B COMPLEX w/VITAMIN C 1 CAPLET PO (08:11)
[2024-08-11] MEDS: VITAMIN D3 (cholecalciferol) 25 MCG PO (08:11)
[2024-08-11] MEDS: FLUSH (NSS) 1 FLUSH IV (08:12)
[2024-08-11 08:28] LABS: Hematocrit 38.7 % (37.0-47.0); Hemoglobin 13.6 g/dL (12.0-16.0); Mean Corp Hgb Conc. 35.1 g/dL (33.0-37.0); Mean Corpuscular Hgb 31.2 pg (27.0-31.0); Mean Corpuscular Volume 88.8 fL (81.0-99.0); Mean Platelet Volume 9.8 fL (7.4-10.4); Platelet Count 213 10^3/uL (130-400); Red Blood Cell Count 4.36 10^6/uL (4.20-5.40); Red Cell Dist. Width 11.6 % (11.5-14.5); White Blood Cell Count 4.3 10^3/uL (4.8-10.8)
[2024-08-11 08:57] LABS: Blood Urea Nitrogen 7 mg/dl (7-17); Carbon Dioxide 27 mmol/L (22-30); Chloride 101 mmol/L (98-107); Estimated Creatinine Clearance 74 ml/min; Glucose 108 mg/dl (70-99); Potassium 4.6 mmol/L (3.5-5.1); Sodium 140 mmol/L (135-145); eGFR > 60.00
[2024-08-11 09:19] LABS: Vitamin D, 25-OH*** 39.1 ng/mL (30-80)
[2024-08-11 09:34] LABS: C-Reactive Protein < 5.00 mg/L (0.0-10.00)
[2024-08-11 10:09] LABS: Ferritin 41.3 ng/ml (6.24-137)
--- NOTE | 2024-08-11 10:10 | W.PN.HOSP.TC ---
Addendum entered and electronically signed by Silver Lopez MD 08/11/24 13:59:
Imaging
CT Brain
IMPRESSION:
No acute intracranial hemorrhage.
There are small hypodensities adjacent to the bilateral putamen which are nonspecific. These may represent prominent perivascular spaces however small infarctions could appear similar.
CT LSpine
IMPRESSION:
There is degenerative disc disease at L4-L5 and L5-S1.
At L4-L5 there is mild/moderate canal stenosis and mild bilateral neuroforaminal narrowing.
At L5-S1 there is asymmetric to left disc bulge with resultant mild canal stenosis, left lateral recess narrowing and mild left-sided neuroforaminal narrowing.
Brain MRI
IMPRESSION:
No acute intracranial abnormality. No acute infarct. Findings likely reflecting slightly prominent perivascular spaces associated with the basal ganglia, bilaterally. Remote insult/infarct with encephalomalacia felt to be less likely.
C-Spine MRI
IMPRESSION:
There is straightening of the cervical spine with multilevel degenerative disc disease and facet arthropathy. Findings most pronounced at the C6-C7 level where there is moderate, right greater than left bilateral neuroforaminal narrowing. There is
no significant spinal canal stenosis.
After reviewing imaging and as there was no suggestive evidence of a demyelinating condition nor evidence of infarct. I suspect symptomatology likely secondary to L4-L5/L5-S1 disc bulging canal stenosis. Without evidence of cauda equina on exam
nor is subjectively. Or this could also be related to history of ankylosing spondylitis. Therefore at this time after discussing findings with neurology agree with outpatient follow-up with neurologist for EMG. Increase pregabalin to 3 times a
day. Outpatient rheumatology follow-up with Dr. Daniel River.
More than 30 minutes spent in discharge including
Final examination of the patient
Summarizing hospital stay
Instructions for continuing care to all relevant caregivers
Preparation of discharge records, prescriptions, and referral forms
Total time spent (in minutes): 33mins
Original Note:
Today's Communication/Plan
-
MRI spine within normal limits
Discharge home with pregabalin and neurology follow-up
Assessment / Plan
Assessment / Plan
Impression:
43 female past ministry of fibromyalgia, ankylosing spondylitis, lumbar degenerative disc disease with left-sided sciatica, chronic lower back pain, chronic urinary urgency, JUAREZ deficiency, bipolar disorder presents for left leg numbness and
expressive aphasia.
Plan:
#Left-sided hemisensory motor deficits concerning for CVA versus demyelinating disorder
Symptoms and presentation are concerning for multiple sclerosis
CT head showing small hypodensities adjacent to bilateral putamen, nonspecific could be infarctions
Lumbar spine CT demonstrated mild to moderate canal stenosis, with asymmetric left disc bulge
Brain MRI with and without contrast demonstrated no acute intracranial abnormality, no acute infarct. See data section
MRI neck within normal limits
Neurology following
Plan/workup per neurology
PT OT
B12, folate, CRP all within normal limits
Vitamin D level within normal limits
#Ankylosing spondylitis/chronic lower back pain
Previously on Humira, discontinued 2 weeks ago due to side effects
Pain management with tramadol 50 every 8 as needed
#Lumbar disc degenerative disease with left-sided sciatica
CT scan is consistent with known history
Has received spinal epidural injections in the past
Continue nabumetone
#Fibromyalgia
Continue home pregabalin and tramadol
#Chronic urinary urgency
Bladder scan pending to evaluate for neurogenic bladder
#IgA deficiency
Not currently on treatment
#Bipolar disorder
Continue home Lamictal
#General Anxiety disorder
Continue home Lexapro, trazodone, BuSpar
Full code
DVT prophylaxis SCDs
Regular diet
Data:
Head CT without contrast
No acute intracranial hemorrhage.
There are small hypodensities adjacent to the bilateral putamen which are nonspecific. These may represent prominent perivascular spaces however small infarctions could appear similar.
Lumbar spine CT
There is degenerative disc disease at L4-L5 and L5-S1.
At L4-L5 there is mild/moderate canal stenosis and mild bilateral neuroforaminal narrowing.
At L5-S1 there is asymmetric to left disc bulge with resultant mild canal stenosis, left lateral recess narrowing and mild left-sided neuroforaminal narrowing.
Brain MRI with and without contrast
No acute intracranial abnormality. No acute infarct. Findings likely reflecting slightly prominent perivascular spaces associated with the basal ganglia, bilaterally. Remote insult/infarct with encephalomalacia felt to be less likely.
MRI cervical spine
There is straightening of the cervical spine with multilevel degenerative disc disease and facet arthropathy. Findings most pronounced at the C6-C7 level where there is moderate, right greater than left bilateral neuroforaminal narrowing. There is
no significant spinal canal stenosis.
Anticipated Discharge: Today
Subjective/Interval History
-
Date of Service: August 11, 2024
No acute events overnight
Objective Data
-
Labs:
Laboratory Results
08/11/24
07:48
WBC 4.3 L
Hgb 13.6
Hct 38.7
Plt Count 213 D
Sodium 140
Potassium 4.6
Chloride 101
Carbon Dioxide 27
BUN 7
Creatinine 0.9
Glucose 108 H
Calcium 10.0
Vital Signs:
Vital Signs
Temp Pulse Resp BP Pulse Ox
98.6 F 67 18 115/76 99
08/11/24 07:35 08/11/24 07:35 08/11/24 07:35 08/11/24 07:35 08/11/24 07:35
I&O
08/10/24 08/11/24 08/12/24
06:59 06:59 06:59
Intake Total 2219
Balance 2219
Review of Systems
-
History Source: Patient
Constitutional: Reports No Symptoms
EENT: Reports Blurry Vision
Respiratory: Reports No Symptoms
Cardiac: Reports No Symptoms
Abdomen/GI: Reports No Symptoms
Neuro: Reports Weakness
Physical Exam
-
General: Well Developed, Well Nourished, No Apparent Distress and Conversant
Respiratory: Clear to Auscultation
Cardiac: Regular Rhythm and S1/S2
GI: Soft, Nontender and Nondistended
Musculoskeletal: No Edema
Skin: Warm and Dry
Neuro: Awake, Alert, Oriented and AO x 3
Psych: Calm and Intact Judgement/Insight
Data Reviewed
-
Labs: Labs Reviewed by me and Discussed with Physician
[2024-08-11] MEDS: LEXAPRO 20 MG PO (10:25)
[2024-08-11] MEDS: ROXICODONE 5 MG PO (10:25)
--- NOTE | 2024-08-11 10:52 | W.PN.NEURO.1 ---
Today's Communication / Plan
-
Provide pregabalin 50 mg 3 times a day for discomfort control
Await vit B1, acetylcholine receptor antibodies
Consider as outpatient NCS/EMG of LUE/LE
Neuro Assessment/Plan
Assessment
I. Left hemisensory deficits with normal MRI of brain with and without contrast as well as normal MRI of cervical spine with and without contrast
II. Ankylosing spondylitis
III. Chronic back pain, subjective left leg pain
Plan
Provide pregabalin 50 mg 3 times a day for discomfort control
Await vit B1, acetylcholine receptor antibodies
Consider as outpatient NCS/EMG of LUE/LE
Subjective/Objective
Subjective Data
Date of Service: August 11, 2024
Objective Data
Vital Signs
Temp Pulse Resp BP Pulse Ox
37.0 C 67 18 115/76 99
08/11/24 07:35 08/11/24 07:35 08/11/24 07:35 08/11/24 07:35 08/11/24 07:35
Lab Results
08/11/24 07:48
08/11/24 07:48
Sodium 140 mmol/L (135-145) 08/11/24 07:48
Potassium 4.6 mmol/L (3.5-5.1) 08/11/24 07:48
BUN 7 mg/dl (7-17) 08/11/24 07:48
Glucose 108 mg/dl (70-99) H 08/11/24 07:48
Calcium 10.0 mg/dl (8.4-10.2) 08/11/24 07:48
Vitamin B12 710 pg/ml (239-931) 08/09/24 17:35
Patient Allergies
gluten Allergy (Verified 08/09/24 14:39)
Unknown
Data Reviewed
-
MRI Head: Report Reviewed
MRI Cervical Spine: Report Reviewed
Labs: Report Reviewed
Reviewed with: Physician
Old Records: Summarized
Past History
Past History
ED Past Medical History: Psychiatric (Bipolar affective disorder) and Other (Ankylosing spondylitis, IgA deficiency)
Social History
Alcohol: Former
Family History
Family History: Other (Reviewed and noncontributory)
Medications
-
Medications:
Generic Name Dose Route Start Last Admin
Trade Name Freq PRN Reason Stop Dose Admin
Acetaminophen 650 mg 08/09/24 19:25 08/10/24 08:10
Acetaminophen 325 Mg Tablet PO 09/06/24 19:24 650 mg
Q4HPRN PRN Administration
mild pain/PERRIN/temp> 100.4F
Ascorbic Acid 500 mg 08/10/24 08:00 08/11/24 08:09
Ascorbic Acid 500 Mg Tablet PO 09/07/24 07:59 500 mg
DAILY AMARILIS Administration
Buspirone HCl 10 mg 08/09/24 22:00 08/10/24 21:31
Buspirone 10 Mg Tablet PO 09/06/24 21:59 10 mg
HS AMARILIS Administration
Calcium Carbonate 200 mg 08/09/24 19:25
Calcium Antacid 200 Mg (Calcium Carbonate 500 Mg) Chew Tablet PO 09/06/24 19:24
BIDPRN PRN
gerd
Calcium Polycarbophil 625 mg 08/10/24 08:00 08/11/24 08:09
Calcium Polycarbophil 625 Mg Tablet PO 09/07/24 07:59 625 mg
DAILY AMARILIS Administration
Cholecalciferol 25 mcg 08/10/24 08:00 08/11/24 08:11
Cholecalciferol (Vitamin D3) 25 Mcg Tablet (1,000 Units) PO 09/07/24 07:59 25 mcg
DAILY AMARILIS Administration
Clonazepam 1 mg 08/09/24 19:25 08/11/24 06:29
Clonazepam 1 Mg Tablet PO 09/06/24 19:24 1 mg
BIDPRN PRN Administration
anxiety
Escitalopram Oxalate 10 mg 08/10/24 08:00 08/11/24 08:09
Escitalopram 10 Mg Tablet PO 09/07/24 07:59 10 mg
DAILY AMARILIS Administration
Escitalopram Oxalate 20 mg 08/11/24 10:00 08/11/24 10:25
Escitalopram 20 Mg Tablet PO 09/08/24 09:59 20 mg
DAILY AMARILIS Administration
Lamotrigine 200 mg 08/10/24 08:00 08/11/24 08:10
Lamotrigine 100 Mg Tablet PO 09/07/24 07:59 200 mg
DAILY AMARILIS Administration
Loperamide HCl 2 mg 08/09/24 20:37
Loperamide 2 Mg Capsule PO 09/06/24 20:36
Q4HPRN PRN
gluten allergy
Nabumetone 500 mg 08/09/24 20:00 08/11/24 08:10
Nabumetone 500 Mg Tablet PO 09/06/24 19:59 500 mg
BID AMARILIS Administration
Vitamin K2 45 Mcg 0 mcg 08/10/24 08:00
Capsule 1 Po Cap Po PO 09/07/24 07:59
Daily DAILY AMARILIS
Oxycodone HCl 5 mg 08/10/24 16:22 08/11/24 10:25
Oxycodone 5 Mg Regular Release Tablet PO 08/24/24 16:21 5 mg
Q4HPRN PRN Administration
severe pain
Pregabalin 25 mg 08/09/24 20:00 08/11/24 08:09
Pregabalin 25 Mg Capsule PO 09/06/24 19:59 25 mg
BID AMARILIS Administration
Senna/Docusate Sodium 1 tablet 08/10/24 17:48 08/10/24 20:24
Docusate W/Senna (Lina-Colace) Tablet PO 09/07/24 17:47 1 tablet
DAILYPRN PRN Administration
constipation
Sodium Chloride 0 flush 08/09/24 20:00 08/11/24 08:12
Sodium Chloride 0.9% (Flush) Syringe IV 09/06/24 19:59 1 flush
PER PROTOCOL AMARILIS Administration
Tizanidine HCl 4 mg 08/09/24 19:25 08/10/24 20:26
Tizanidine 4 Mg Tablet PO 09/06/24 19:24 4 mg
BIDPRN PRN Administration
muscle pains
Tramadol HCl 50 mg 08/09/24 19:25 08/11/24 06:29
Tramadol Hcl 50 Mg Tablet PO 09/06/24 19:24 50 mg
Q8HPRN PRN Administration
moderate pains
Trazodone HCl 50 mg 08/09/24 19:25
Trazodone 50 Mg Tablet PO 09/06/24 19:24
HSPRN PRN
sleep
Vitamin B Complex/Vitamin C 1 caplet 08/10/24 08:00 08/11/24 08:11
Vitamin B Complex With Vitamin C Caplet PO 09/07/24 07:59 1 caplet
DAILY AMARILIS Administration
[2024-08-11 11:04] VITALS: BP 135/80
--- NOTE | 2024-08-11 13:29 | W.DCSUMMARY ---
Discharge Summary
Discharge Data
Date of Admission: 08/09/24
Date of Discharge: 08/11/24
-
Pending Results: Yes
Additional Pending Results:
Vitamin B1, acetylcholine receptor antibodies
Hospital Course
Discharging Physician : John Barbour K
Disposition : home
Primary care physician : Dr Chavo Currie
Principal Discharge diagnosis : Left hemisensory deficit
Chronic Discharge diagnosis : Ankylosing spondylitis, chronic lower back pain, lumbar disc degenerative disease, left-sided sciatica, fibromyalgia, chronic urinary urgency, IgA deficiency, bipolar disorder, general anxiety disorder
Hospital Course : 43-year-old female with past medical history of left-sided sciatica, lumbar degenerative disc disease, lower back pain, ankylosing spondylitis presents to the ED with severe lower back pain, radiating down the left leg as well as
numbness. She also endorsed numbness and tingling intermittently of the hand. As well as blurry vision. CT head without contrast demonstrated small hypodensities adjacent to bilateral putamen which were nonspecific. Lumbar spine CT demonstrated
asymmetric left disc bulge and mild neuroforaminal narrowing. Neurology was consulted and patient was admitted for further workup and to rule out CVA or demyelinating disorder. Neurology ordered MRI brain with and without contrast which
demonstrated no acute intracranial abnormalities and no acute infarct. They also ordered MRI cervical spine with and without contrast which was also normal. Our suspicion for MS or demyelinating disorders is low and we do not believe she had any
CVA. Neurology recommended further outpatient workup to consider EMG or further workup, however for now she will be discharged home with pregabalin 50 p.o. 3 times a day. She will also follow-up with her manager [employer] as an outpatient. Patient
was discharged home with neurology and rheumatology follow-up.
Important imaging findings :
08/09/[address] without contrast, impression:
No acute intracranial hemorrhage.
There are small hypodensities adjacent to the bilateral putamen which are nonspecific. These may represent prominent perivascular spaces however small infarctions could appear similar.
08/09/[address] without contrast, impression:
There is degenerative disc disease at L4-L5 and L5-S1.
At L4-L5 there is mild/moderate canal stenosis and mild bilateral neuroforaminal narrowing.
At L5-S1 there is asymmetric to left disc bulge with resultant mild canal stenosis, left lateral recess narrowing and mild left-sided neuroforaminal narrowing.
08/10/24 and MRI with and without contrast, impression:
No acute intracranial abnormality. No acute infarct. Findings likely reflecting slightly prominent perivascular spaces associated with the basal ganglia, bilaterally. Remote insult/infarct with encephalomalacia felt to be less likely.
08/11/2024 cervical spine MRI with and without contrast, impression:
There is straightening of the cervical spine with multilevel degenerative disc disease and facet arthropathy. Findings most pronounced at the C6-C7 level where there is moderate, right greater than left bilateral neuroforaminal narrowing. There is
no significant spinal canal stenosis.
Procedure findings :
no procedures
Discharge Plan
-
Patient Disposition: Home (Routine Discharge)
Discharge Diagnosis/Procedures: Left-sided hemisensory deficits
Condition: Good
Diet: No restrictions
Activity: As tolerated
Driving Restrictions: As prior to admission
Bathing Restrictions: None
Activity Restrictions/Additional Instructions:
Please follow-up with your primary care physician within 1 week of discharge
Please follow-up with neurology, Dr. Varghese in 2 to 3 weeks for continuation of your neurologic workup
Referrals:
Chavo Currie MD [Family Provider] - in less than 1 week
Mirza Snell MD [Active] - in two to three weeks
Additional Discharge Medication Instructions: Stop pregabalin 25 mg
start pregabalin 50 mg 3 times daily by mouth for discomfort control
Prescriptions:
New
pregabalin 50 mg capsule
50 mg PO TID 30 Days Qty: 90 0RF
Continued
acetaminophen [Tylenol] 325 mg Tablet
650 mg PO Q6HPRN PRN (Reason: mild pain)
lamotrigine [Lamictal] 200 mg Tablet
200 mg PO DAILY
trazodone 50 mg Tablet
50 mg PO HSPRN PRN (Reason: sleep)
tizanidine 4 mg Tablet
4 mg PO BIDPRN PRN (Reason: muscle pains)
clonazepam 1 mg Tablet
1 mg PO BIDPRN PRN (Reason: anxiety)
loperamide 2 mg Tablet
2 mg PO Q4HPRN PRN (Reason: gluten allergy)
sumatriptan succinate [Imitrex] 50 mg Tablet
0 mg PO .COMPLEX
Rx Instructions:
take 1 tab at onset of headache; if no relief may repeat 1 tab after at least 2 hrs; max = 4 tabs/24 hr
tramadol 50 mg Tablet
50 mg PO Q8HPRN PRN (Reason: moderate pains)
ascorbic acid (vitamin C) [Vitamin C] 500 mg Tablet
500 mg PO DAILY
buspirone 10 mg Tablet
10 mg PO HS
calcium carbonate [Tums] 200 mg calcium (500 mg) Tablet,Chewable
200 mg PO BIDPRN PRN (Reason: gerd)
calcium polycarbophil [FiberCon] 625 mg Tablet
625 mg PO DAILY
vitamin B complex Tablet
1 tab PO DAILY
nabumetone 500 mg Tablet
500 mg PO BID
escitalopram oxalate [Lexapro] 10 mg Tablet
10 mg PO DAILY
cholecalciferol (vitamin D3) [Vitamin D3] 25 mcg (1,000 unit) Tablet
25 mcg PO DAILY
vitamin K2 45 mcg Capsule
45 mcg PO DAILY
turmeric 400 mg Capsule
400 mg PO DAILY
escitalopram oxalate [Lexapro] 20 mg Tablet
20 mg PO DAILY Qty: 0 0RF
Discontinued
pregabalin [Lyrica] 25 mg Capsule
25 mg PO BID
Discharge Orders:
Discharge Patient (As Directed); Ordered 08/11/24
Ordered By: Tony Barbour
Discharge Date and Time
Discharge Date/Time: 08/11/24 15:44
Print Language: MEXICAN
[2024-08-11 15:06] VITALS: BP 104/66
== END 2024-08-11 15:44 | disposition home or self-care (01) | DRG 92 ==
LOC: 4 EAST ACU 18:43
PROVIDERS: ADMITTING PHYSICIAN Hospitalist; ATTENDING PHYSICIAN Hospitalist; CONSULT PHYSICIAN Psychiatry & Neurology Neurology; EMERGENCY PHYSICIAN Emergency Medicine; FAMILY PHYSICIAN Internal Medicine
DX: R29.818 Other symptoms and signs involving the nervous system (principal); D80.2 Selective deficiency of immunoglobulin A [IgA]; R47.01 Aphasia; F10.21 Alcohol dependence, in remission; F31.9 Bipolar disorder, unspecified; M45.9 Ankylosing spondylitis of unspecified sites in spine; M06.9 Rheumatoid arthritis, unspecified; F17.210 Nicotine dependence, cigarettes, uncomplicated; F41.1 Generalized anxiety disorder; G89.29 Other chronic pain; K21.9 Gastro-esophageal reflux disease without esophagitis; M50.323 Other cervical disc degeneration at C6-C7 level; M47.816 Spondylosis without myelopathy or radiculopathy, lumbar region; M47.817 Spondylosis without myelopathy or radiculopathy, lumbosacral region; M79.7 Fibromyalgia; M54.42 Lumbago with sciatica, left side; H53.8 Other visual disturbances; R20.0 Anesthesia of skin; R20.2 Paresthesia of skin; R26.2 Difficulty in walking, not elsewhere classified; R53.1 Weakness; R39.15 Urgency of urination; Z79.899 Other long term (current) drug therapy
CPT/HCPCS: 70450; 70553; 72131; 72156; 80048; 80053; 82306; 82607; 82728; 82746; 84425; 84443; 84703; 85025; 85027; 85652; 86041; 86140; 93005; 96374; 96375; 97116; 97163; 97167; 99285; 99406; A9575

== ENCOUNTER 2024-12-14 14:37 | Emergency (ER) | payer BC, SELFPAY ==
[2024-12-14 14:41] VITALS: BP 131/84
--- NOTE | 2024-12-14 16:17 | ED.GENMED ---
History of Present Illness
General
Chief Complaint: Abdominal Pain
Source: patient
Exam Limitations: none
Time Seen by Provider: 12/14/24 16:04
Nursing documentation reviewed up to this point in time: agreed with
History of Present Illness
History of Present Illness:
Patient to ED with complaint of diffuse abd. pain, nausea, bloating, diarrhea. She was evaluated at and sent to ED for further evaluation. She denies fever/chills. Reports 40lb weight loss in 1 year, poor appetite. Has followed with GI at
[facility] in the past but has not been seen in 1 year. Brought self to ED for eval.
Past History
Past History
ED Past Medical History: Psychiatric (Bipolar affective disorder) and Other (Ankylosing spondylitis, IgA deficiency, gluten sensitivity. )
Social History
Alcohol: Former
Family History
Family History: Other (Reviewed and noncontributory)
Review of Systems
Review of Systems
Allergies reviewed?: Yes
All Other Systems: ROS reviewed and negative except as documented in HPI and ROS
Constitutional: Reports no symptoms
EENT: Reports no symptoms
Respiratory: Reports no symptoms
Cardiac: Reports no symptoms
ABD/GI: Reports abdominal pain, nausea and diarrhea
: Reports no symptoms
Musculoskeletal: Reports no symptoms
Skin: Reports no symptoms
Neurological: Reports no symptoms
Psychiatric: Reports no symptoms
Phy Exam
General Physical Exam
General Presentation: well appearing and no apparent distress
General age: appears stated age
General Skin: warm and dry
General Habitus: normal
General Mental: alert
Cardiovascular Exam
Cardiovascular Exam: regular rate/rhythm and no edema
Gastrointestinal Exam
Gastrointestinal Exam: normal bowel sounds, soft, no organomegaly, no pulsatile mass, non distended and no cva tenderness
Palpation: generalized: Moderate tenderness
Musculoskeletal Exam
Musculoskeletal Exam: full ROM and neuro vasc intact
Skin Exam
Skin Exam: normal color, warm/dry and no rash
Psychiatric Exam
Psychiatric Exam: normal mood/affect
Course
Orders/Labs/Results
Orders:
Orders
12/14/24 16:16
0.9% Sodium Chloride 1000 ml [Nss] 1,000 ml IV BOLUS
Iohexol [Omnipaque] See Protocol PO NOW STA
Prochlorperazine [Compazine] 10 mg IV NOW STA
Test Result ONCE
12/14/24 16:17
CT Abd/pel W Iv And Oral Contr Urgent
Comment:
Reason For Exam: Diffuse abd. pain
12/14/24 16:28
Complete Blood Count/With Diff Urgent
Comprehensive Metabolic Panel Urgent
HCG, Serum Qualitative Screen Urgent
Lipase Urgent
12/14/24 19:17
Norovirus by PCR Urgent
AVTAR Source: Feces/Stool
Specimen Description:
Date Specimen was Collected: 12/14/24
Time Specimen was Collected: 18:59
STOOL [C difficile Antigen & Toxins] Urgent
AVTAR Source: Feces/Stool
Specimen Description:
Date Specimen was Collected: 12/14/24
Time Specimen was Collected: 18:59
Stool Culture Urgent
AVTAR Source: Feces/Stool
Specimen Description:
Date Specimen was Collected: 12/14/24
Time Specimen was Collected: 18:59
Abnormal Lab Results
12/14/24
16:28
RBC 4.17 L 10^6/uL
(4.20-5.40)
MCH 31.4 H pg
(27.0-31.0)
BUN 2 L mg/dl
(7-17)
Total Protein 6.2 L g/dl
(6.3-8.2)
12/14/24 16:28
12/14/24 16:28
Vital Signs
Initial and Last Documented VS:
Initial Vital Signs
Temp Pulse Resp BP Pulse Ox
97.9 F 66 16 131/84 100
12/14/24 14:41 12/14/24 14:41 12/14/24 14:41 12/14/24 14:41 12/14/24 14:41
Last Documented Vital Signs
Temp Pulse Resp BP Pulse Ox
97.9 F 62 16 112/63 100
12/14/24 14:41 12/14/24 19:41 12/14/24 19:41 12/14/24 19:41 12/14/24 19:41
*Radiology
Radiology exam reviewed: radiology read reviewed
*Pulse Oximetry
Patient hypoxic: no
*Critical Care Note
Total Time (30-74mins, 75-104mins- exclusive of procedures): Not Applicable
ED Attending Note
-
Portions of this chart may have been created with voice recognition software.� Occasional wrong word or��sound alike� substitutions may have occurred due to the inherent limitations of voice recognition software.
Discharge Plan
Departure
Patient Disposition: Home (Routine Discharge)
Date of Disposition: 12/14/24
Time of Disposition: 20:45
Patient with high blood pressure during this ER visit?: No
Condition: Good
Covid-19: Not Applicable
Discharge Problem:
Abdominal pain
Instructions: Clear Liquid Diet, Abdominal Pain
Prescriptions:
No Action
acetaminophen [Tylenol] 325 mg Tablet
650 mg PO Q6HPRN PRN (Reason: mild pain)
lamotrigine [Lamictal] 200 mg Tablet
200 mg PO DAILY
trazodone 50 mg Tablet
50 mg PO HSPRN PRN (Reason: sleep)
tizanidine 4 mg Tablet
4 mg PO BIDPRN PRN (Reason: muscle pains)
clonazepam 1 mg Tablet
1 mg PO BIDPRN PRN (Reason: anxiety)
loperamide 2 mg Tablet
2 mg PO Q4HPRN PRN (Reason: gluten allergy)
sumatriptan succinate [Imitrex] 50 mg Tablet
0 mg PO .COMPLEX
Rx Instructions:
take 1 tab at onset of headache; if no relief may repeat 1 tab after at least 2 hrs; max = 4 tabs/24 hr
tramadol 50 mg Tablet
50 mg PO Q8HPRN PRN (Reason: moderate pains)
ascorbic acid (vitamin C) [Vitamin C] 500 mg Tablet
500 mg PO DAILY
buspirone 10 mg Tablet
10 mg PO HS
calcium carbonate [Tums] 200 mg calcium (500 mg) Tablet,Chewable
200 mg PO BIDPRN PRN (Reason: gerd)
calcium polycarbophil [FiberCon] 625 mg Tablet
625 mg PO DAILY
vitamin B complex Tablet
1 tab PO DAILY
nabumetone 500 mg Tablet
500 mg PO BID
escitalopram oxalate [Lexapro] 10 mg Tablet
10 mg PO DAILY
cholecalciferol (vitamin D3) [Vitamin D3] 25 mcg (1,000 unit) Tablet
25 mcg PO DAILY
vitamin K2 45 mcg Capsule
45 mcg PO DAILY
turmeric 400 mg Capsule
400 mg PO DAILY
escitalopram oxalate [Lexapro] 20 mg Tablet
20 mg PO DAILY Qty: 0 0RF
pregabalin 50 mg capsule
50 mg PO TID 30 Days Qty: 90 0RF
Referrals:
Chaov Currie MD [Family Provider] - Tomorrow
Interventions
Interventions:
*Risk Screen - Suicide Last Done: 12/14/24 16:20
*General Assessment Last Done: 12/14/24 16:20
*Neglect/Abuse Screening Last Done: 12/14/24 16:20
*ED- Fall Risk Assessment Last Done: 12/14/24 16:20
*ED COVID-19 Vaccine History Last Done: 12/14/24 16:20
*Nursing Disposition Last Done: 12/14/24 20:58
II-Opouye-Oefvxomnld Assessment Last Done: 12/14/24 16:20
Discharge Date and Time
Discharge Date/Time: 12/14/24 20:58
Print Language: FILIPINO
[2024-12-14 16:20] VITALS: BP 115/70
[2024-12-14] MEDS: NSS 1000 IV (16:35)
[2024-12-14] MEDS: OMNIPAQUE 50 ML PO (16:36)
[2024-12-14] MEDS: COMPAZINE 10 MG IV (16:36)
[2024-12-14 16:37] LABS: % Basophils 1.2 % (0-2); % Eosinophils 3.4 % (0-6); % Immature Granulocytes 0.2 % (0-0.5); % Lymphocytes 29.6 % (20.5-51.1); % Monocytes 7.3 % (1.7-9.3); % Neutrophils 58.3 % (42.2-75.2); Absolute Basophils 0.1 10^3/uL (0-0.2); Absolute Eosinophils 0.2 10^3/uL (0-0.7); Absolute Lymphocytes 1.7 10^3/uL (1.2-3.4); Absolute Monocytes 0.4 10^3/uL (0.1-0.6); Absolute Neutrophils 3.3 10^3/uL (1.4-6.5); Hematocrit 38.9 % (37.0-47.0); Hemoglobin 13.1 g/dL (12.0-16.0); Mean Corp Hgb Conc. 33.7 g/dL (33.0-37.0); Mean Corpuscular Hgb 31.4 pg (27.0-31.0); Mean Corpuscular Volume 93.3 fL (81.0-99.0); Nucleated Red Blood Cells % 0 %; Platelet Count 192 10^3/uL (130-400); Red Blood Cell Count 4.17 10^6/uL (4.20-5.40); Red Cell Dist. Width 11.5 % (11.5-14.5); White Blood Cell Count 5.7 10^3/uL (4.8-10.8)
[2024-12-14 16:49] LABS: HCG, Serum Qualitative Screen Negative
[2024-12-14 16:55] LABS: ALT (SGPT) 20 U/L (0-35); AST (SGOT) 23 U/L (14-36); Albumin 4.3 g/dl (3.5-5.0); Alkaline Phosphatase 48 U/L (38-126); Blood Urea Nitrogen 2 mg/dl (7-17); Calcium 9.5 mg/dl (8.4-10.2); Carbon Dioxide 25 mmol/L (22-30); Chloride 103 mmol/L (98-107); Glucose 77 mg/dl (70-99); Lipase 74 U/L (23-300); Potassium 4.4 mmol/L (3.5-5.1); Sodium 135 mmol/L (135-145); Total Bilirubin 0.5 mg/dl (0.2-1.3); Total Protein 6.2 g/dl (6.3-8.2); eGFR > 60.00
[2024-12-14 18:56] VITALS: BP 117/75
--- NOTE | 2024-12-14 19:24 | EDRN ---
Report received, patient was able to obtain a stool specimen which was sent to lab and is now in CT
[2024-12-14 19:41] VITALS: BP 112/63; BMI 21.7
--- NOTE | 2024-12-14 20:38 | EDRN ---
ELLEN Langston in going over results with patient.
== END 2024-12-14 20:58 | disposition home or self-care (01) ==
LOC: EMR 14:37
PROVIDERS: Nurse Practitioner; EMERGENCY PHYSICIAN Emergency Medicine; FAMILY PHYSICIAN Internal Medicine
DX: R10.84 Generalized abdominal pain (principal); F31.9 Bipolar disorder, unspecified; M45.9 Ankylosing spondylitis of unspecified sites in spine; D80.2 Selective deficiency of immunoglobulin A [IgA]
CPT/HCPCS: 99284; 96374; 96361; 74177; 80053; 83690; 84703; 85025; 87045; 87046; 87324; 87427; 87449; 87798; Q9967

== ENCOUNTER 2024-12-22 14:55 | Emergency (ER) | payer BC, SELFPAY ==
[2024-12-22 14:58] VITALS: BP 169/81
--- NOTE | 2024-12-22 18:30 | ED.GENMED ---
History of Present Illness
General
Chief Complaint: Musculo-Skeletal Complaint
Source: patient
Exam Limitations: none
Time Seen by Provider: 12/22/24 17:25
Nursing documentation reviewed up to this point in time: agreed with
History of Present Illness
History of Present Illness:
Patient presents to ED secondary to intermittent left arm pain, worse this morning, shortly after waking up. Denies fever or chills. Denies loss of sensation or weakness. Denies headache. Denies dizziness. Denies neck pain. Denies difficulty
with ambulation. Denies recent change in medications or diet. Denies recent change in activity. Denies direct trauma. Patient works at home, but she stands up on a desk when she types. She has had a history of lower back pain, which she has
seen orthopedic surgeon at [facility].
Past History
Past History
ED Past Medical History: Psychiatric (Bipolar affective disorder) and Other (Ankylosing spondylitis, IgA deficiency, gluten sensitivity. )
Social History
Alcohol: Former
Family History
Family History: Other (Reviewed and noncontributory)
Review of Systems
Review of Systems
Allergies reviewed?: Yes
All Other Systems: ROS reviewed and negative except as documented in HPI and ROS
Constitutional: Reports no symptoms
Respiratory: Reports no symptoms; Denies trouble breathing
Cardiac: Reports no symptoms
ABD/GI: Reports no symptoms
Musculoskeletal: Reports other (Left arm pain)
Skin: Reports no symptoms
Neurological: Reports no symptoms; Denies dizzy, weakness or numbness
Phy Exam
Physical Exam
Physical Exam:
Physical Exam
General: no apparent distress, not acutely ill. afebrile
Head: nc/at. eomi
Neck: supple. normal range of motion. mild tenderness to palpation at base of neck and left upper back.
Heart: s1/s2 regular rate and rhythm, no murmur.
Lungs: no acute respiratory distress. clear bilaterally
Abdomen: normal bowel sounds. not tender.
Neuro: alert and oriented x 3. no focal sensory/motor deficit.
Skin: no rash
Psychiatric: well kept. interactive and cooperative
Extremities: no edema. normal range of motion
Course
Vital Signs
Initial and Last Documented VS:
Initial Vital Signs
Temp Pulse Resp BP Pulse Ox
98 F 93 16 169/81 99
12/22/24 14:58 12/22/24 14:58 12/22/24 14:58 12/22/24 14:58 12/22/24 14:58
Last Documented Vital Signs
Temp Pulse Resp BP Pulse Ox
98 F 65 16 169/81 99
12/22/24 14:58 12/22/24 18:29 12/22/24 14:58 12/22/24 14:58 12/22/24 14:58
MDM/Problems Addressed
MDM/Problems Addressed:
MRI cervical spine report from 2023 reviewed and discussed with patient, which revealed degenerative disease and multilevel, especially at C6/7 with neuroforaminal narrowing. Fortunately, patient is afebrile, hemodynamically stable, and without any
focal neurological deficit. With no trauma involved, no indication for any imaging studies at this time. Patient's presenting symptoms likely an exacerbation of underlying this disease. As such, patient will be treated symptomatically with
following recommendation, warm compress, Tylenol, along with prescribed medication, i.e. tramadol, as well as close follow-up with her orthopedic surgeon. Patient expresses understanding at time of discharge.
*Critical Care Note
Total Time (30-74mins, 75-104mins- exclusive of procedures): Not Applicable
ED Attending Note
-
Portions of this chart may have been created with voice recognition software.� Occasional wrong word or��sound alike� substitutions may have occurred due to the inherent limitations of voice recognition software.
Discharge Plan
Departure
Patient Disposition: Home (Routine Discharge)
Date of Disposition: 12/22/24
Time of Disposition: 18:42
Patient with high blood pressure during this ER visit?: Yes
Discharge Problem:
Arm pain
Instructions: Radiculopathy of the neck and back (including sciatica) - Discharge instructions
Prescriptions:
New
tramadol 50 mg tablet
50 mg PO Q8H PRN (Reason: Pain) Qty: 14 0RF
No Action
acetaminophen [Tylenol] 325 mg Tablet
650 mg PO Q6HPRN PRN (Reason: mild pain)
lamotrigine [Lamictal] 200 mg Tablet
200 mg PO DAILY
trazodone 50 mg Tablet
50 mg PO HSPRN PRN (Reason: sleep)
tizanidine 4 mg Tablet
4 mg PO BIDPRN PRN (Reason: muscle pains)
clonazepam 1 mg Tablet
1 mg PO BIDPRN PRN (Reason: anxiety)
loperamide 2 mg Tablet
2 mg PO Q4HPRN PRN (Reason: gluten allergy)
sumatriptan succinate [Imitrex] 50 mg Tablet
0 mg PO .COMPLEX
Rx Instructions:
take 1 tab at onset of headache; if no relief may repeat 1 tab after at least 2 hrs; max = 4 tabs/24 hr
tramadol 50 mg Tablet
50 mg PO Q8HPRN PRN (Reason: moderate pains)
ascorbic acid (vitamin C) [Vitamin C] 500 mg Tablet
500 mg PO DAILY
buspirone 10 mg Tablet
10 mg PO HS
calcium carbonate [Tums] 200 mg calcium (500 mg) Tablet,Chewable
200 mg PO BIDPRN PRN (Reason: gerd)
calcium polycarbophil [FiberCon] 625 mg Tablet
625 mg PO DAILY
vitamin B complex Tablet
1 tab PO DAILY
nabumetone 500 mg Tablet
500 mg PO BID
escitalopram oxalate [Lexapro] 10 mg Tablet
10 mg PO DAILY
cholecalciferol (vitamin D3) [Vitamin D3] 25 mcg (1,000 unit) Tablet
25 mcg PO DAILY
vitamin K2 45 mcg Capsule
45 mcg PO DAILY
turmeric 400 mg Capsule
400 mg PO DAILY
escitalopram oxalate [Lexapro] 20 mg Tablet
20 mg PO DAILY Qty: 0 0RF
pregabalin 50 mg capsule
50 mg PO TID 30 Days Qty: 90 0RF
Referrals:
Chavo Currie MD [Family Provider] -
Activity Restrictions/Additional Instructions:
As discussed, please follow-up with your primary care physician and/or orthopedic surgeon for reevaluation. Your prescription has been sent electronically to [facility] pharmacy in [place].
Interventions
Interventions:
*Risk Screen - Suicide Last Done: 12/22/24 15:01
*General Assessment Last Done: 12/22/24 19:08
*Neglect/Abuse Screening Last Done: 12/22/24 15:01
*ED- Fall Risk Assessment Last Done: 12/22/24 19:08
*ED COVID-19 Vaccine History Last Done: 12/22/24 15:01
*Nursing Disposition Last Done: 12/22/24 19:08
ED-Musculoskeletal Assessment Last Done: 12/22/24 19:08
Discharge Date and Time
Discharge Date/Time: 12/22/24 19:09
Print Language: RUSSIAN
== END 2024-12-22 19:09 | disposition home or self-care (01) ==
LOC: EMR 14:55
PROVIDERS: EMERGENCY PHYSICIAN Emergency Medicine; FAMILY PHYSICIAN Internal Medicine
DX: M79.602 Pain in left arm (principal); R03.0 Elevated blood-pressure reading, without diagnosis of hypertension
CPT/HCPCS: 99282

== ENCOUNTER 2025-06-02 10:32 | Emergency (ER) | payer BC, SELFPAY ==
[2025-06-02 10:38] VITALS: BP 128/89
[2025-06-02] MEDS: TORADOL 30 MG IV (11:27)
[2025-06-02 11:29] VITALS: BP 118/78; BMI 17.9
--- NOTE | 2025-06-02 11:43 | ED.GENMED ---
History of Present Illness
General
Chief Complaint: Breathing Problem
Source: patient
Exam Limitations: none
Time Seen by Provider: 06/02/25 10:48
Nursing documentation reviewed up to this point in time: agreed with
History of Present Illness
History of Present Illness:
see MDM
Past History
Past History
ED Past Medical History: Psychiatric (Bipolar affective disorder) and Other (Ankylosing spondylitis, IgA deficiency, gluten sensitivity. )
Social History
Alcohol: Former
Family History
Family History: Other (Reviewed and noncontributory)
Phy Exam
Physical Exam
Physical Exam:
see MDM
Course
Orders/Labs/Results
Orders:
Orders
06/02/25 10:42
ECG [Electrocardiogram (*1)] Urgent
Reason for Study: Shortness of Breath
06/02/25 10:43
EKG- Treatment ONCE
06/02/25 11:06
Ketorolac [Toradol] 30 mg IV NOW STA
Test Result ONCE
06/02/25 11:26
Complete Blood Count/With Diff Urgent
Comprehensive Metabolic Panel Urgent
D-Dimer Urgent
HCG, Serum Qualitative Screen Urgent
Troponin I Urgent
06/02/25 11:50
COVID-19 Antigen Urgent
Source: Nasal Swab
06/02/25 11:59
Diazepam [Valium] 5 mg PO NOW STA
06/02/25 12:16
CR Chest - 2 Views Urgent
Comment:
Reason For Exam: sob, chest pain
Abnormal Lab Results
06/02/25
11:26
WBC 3.7 L 10^3/uL
(4.8-10.8)
MCH 31.2 H pg
(27.0-31.0)
RDW 11.3 L %
(11.5-14.5)
Absolute Lymphs (auto) 1.1 L 10^3/uL
(1.2-3.4)
Monocytes % 11.0 H %
(1.7-9.3)
06/02/25 11:26
06/02/25 11:26
Vital Signs
Initial and Last Documented VS:
Initial Vital Signs
Temp Pulse Resp BP Pulse Ox
36.8 C 74 18 128/89 99
06/02/25 10:38 06/02/25 10:38 06/02/25 10:38 06/02/25 10:38 06/02/25 10:38
Last Documented Vital Signs
Temp Pulse Resp BP Pulse Ox
36.8 C 58 13 118/78 100
06/02/25 10:38 06/02/25 11:45 06/02/25 11:45 06/02/25 11:29 06/02/25 11:45
MDM/Problems Addressed
Differential Diagnosis Includes:
seeMDM
MDM/Problems Addressed:
Note:
CHIEF COMPLAINT(S)
Chest pressure and shortness of breath for the past two days.
HISTORY OF PRESENT ILLNESS
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 She reports a history of anxiety but notes that this current
episode feels different from her typical anxiety symptoms. The patient states, 'Roxanna never been like this,' describing the chest pressure as persistent and accompanied by shortness of breath. Last night, she began experiencing pain between her
shoulder blades, extending up into her spine, which persisted into the morning. She visited urgent care, where an Electrocardiogram (EKG) was reported as normal, but she was advised to come here to rule out cardiac issues or a pulmonary embolism.
She had a fleeting cough and sore throat a few days ago but denies fever or productive cough.
The patient recently quit smoking cigarettes after a three-week cessation period due to making a deal with her 12-year-old daughter. She has a history of vaping nicotine, which she is trying to decrease. She smoked for the past four years, having
quit for 11 years prior.
The patient has a known autoimmune disease, suspecting lupus, along with ankylosing spondylitis, causing chronic pain in her tailbone and hips. Urgent care providers informed her that autoimmune disorders increase the risk for blood clots. She has
no recent long travels. The patient also has a significant gastrointestinal history, including IBS and recent colonoscopy, which returned normal except for gluten intolerance, necessitating dietary changes. She has experienced significant weight
loss, approximately 40 pounds in the past year and a half.
PAST MEDICAL AND SURIGICAL HISTORY
- Anxiety
- Autoimmune disease (suspected lupus)
- Ankylosing spondylitis
- Irritable Bowel Syndrome (IBS)
- Gluten intolerance
CHRONIC MEDICAL CONDITIONS SIGNIFICANTLY AFFECTING CARE
- Autoimmune Disease
- Ankylosing Spondylitis
SOCIAL DETRMINANTS AFFECTING HEALTH
- Recent cessation of cigarette smoking due to agreement with her daughter.
- Attempts to reduce vaping nicotine.
- Gluten intolerance leading to dietary changes and significant weight loss.
FAMILY HISTORY
- Father: Hypertension, Hyperlipidemia
- Mother: Arrhythmia
- Both parents have autoimmune diseases but no history of heart attacks.
SOCIAL HISTORY
- Recently quit smoking cigarettes for three weeks.
- Vapes nicotine; trying to reduce use.
MEDICATIONS
- Clonazepam as needed, prescribed at 1 mg twice daily, the patient typically takes 0.5 mg once or twice a day.
REVIEW OF SYSTEMS
- Chest: Persistent pressure and pain between shoulder blades and spine.
- Respiratory: Shortness of breath, non-productive cough, no fever.
- Musculoskeletal: Chronic pain in tailbone and hips.
- Gastrointestinal: History of IBS, significant weight loss, gluten intolerance.
PHYSICAL EXAM
Nursing notes reviewed and vital signs reviewed.
GENERAL: Alert , in no apparent distress; mildly anxious
EYE: pupils equal and reactive
NECK: Supple
ENT: o/p clr, mmm.
CARDIAC: Regular rate and rhythm .
LUNGS: Clear breath sounds bilaterally, no acute respiratory distress, no wheezes/rales/rhonchi
ABDOMEN: Soft, without focal tenderness, no r/g, no cvat, normal bowel sounds
NEUROLOGICAL: Alert and oriented, no focal neuro deficits
SKIN: Warm and dry, skin intact.
MUSCULOSKELETAL: No edema, well perfused. neg jenni's sign
PSYCH: Normal and appropriate interaction. mildly anxious; otherwise cooperative, calm
PROBLEM LIST
Acute Problems:
- Chest pressure and shortness of breath
- Pain between shoulder blades
Chronic Problems:
- Autoimmune disease (suspected lupus)
- Ankylosing spondylitis
- Irritable Bowel Syndrome (IBS)
PLAN
- Conduct D-dimer test to rule out clot. If positive, consider CT scan of the lungs with IV contrast.
- Check cardiac enzyme troponin to rule out myocardial infarction.
- Consider chest X-ray for further evaluation if D-dimer is negative.
- Provide pain relief, potentially with intravenous ketorolac, if indicated.
DIFFERENTIAL DIAGNOSIS
The Differential Diagnosis includes, in no particular order and is not limited to:
1. Anxiety-related symptoms
2. Myocardial infarction
3. Pulmonary embolism
4. Pleurisy
5. Costochondritis
6. Gastroesophageal reflux disease (GERD)
7. Musculoskeletal strain
8. Pericarditis
9. Angina pectoris
10. Bronchitis
06/02/25 - 12:25
Patients recent test results, including troponin, D-Dimer, and complete blood count, returned normal. Kidney and liver function tests also showed normal results. Despite the normal findings, the patient expressed concerns about anxiety but declined
medication at this time due to the need to drive. An oral Valium prescription was ordered but will be taken later at home. A chest X-ray is scheduled to complete the evaluation. Patient agreed to this plan and will proceed with the X-ray before
departing.
cxr indep reviewed by me, neg
d/c home
*Pulse Oximetry
SaO2: 100
Oxygen Mode of Delivery: Room air
Patient hypoxic: no (100)
*Critical Care Note
Total Time (30-74mins, 75-104mins- exclusive of procedures): Not Applicable
ED Attending Note
-
Portions of this chart may have been created with voice recognition software.� Occasional wrong word or��sound alike� substitutions may have occurred due to the inherent limitations of voice recognition software.
Discharge Plan
Departure
Patient Disposition: Home (Routine Discharge)
Date of Disposition: 06/02/25
Time of Disposition: 13:08
Patient with high blood pressure during this ER visit?: No
Condition: Fair
Covid-19: Not Applicable
Discharge Problem:
Chest pain
Instructions: Chest Pain (DC)
Prescriptions:
No Action
acetaminophen [Tylenol] 325 mg Tablet
650 mg PO Q6HPRN PRN (Reason: mild pain)
lamotrigine [Lamictal] 200 mg Tablet
200 mg PO DAILY
trazodone 50 mg Tablet
50 mg PO HSPRN PRN (Reason: sleep)
tizanidine 4 mg Tablet
4 mg PO BIDPRN PRN (Reason: muscle pains)
clonazepam 1 mg Tablet
1 mg PO BIDPRN PRN (Reason: anxiety)
loperamide 2 mg Tablet
2 mg PO Q4HPRN PRN (Reason: gluten allergy)
sumatriptan succinate [Imitrex] 50 mg Tablet
0 mg PO .COMPLEX
Rx Instructions:
take 1 tab at onset of headache; if no relief may repeat 1 tab after at least 2 hrs; max = 4 tabs/24 hr
tramadol 50 mg Tablet
50 mg PO Q8HPRN PRN (Reason: moderate pains)
ascorbic acid (vitamin C) [Vitamin C] 500 mg Tablet
500 mg PO DAILY
buspirone 10 mg Tablet
10 mg PO HS
calcium carbonate [Tums] 200 mg calcium (500 mg) Tablet,Chewable
200 mg PO BIDPRN PRN (Reason: gerd)
calcium polycarbophil [FiberCon] 625 mg Tablet
625 mg PO DAILY
vitamin B complex Tablet
1 tab PO DAILY
nabumetone 500 mg Tablet
500 mg PO BID
escitalopram oxalate [Lexapro] 10 mg Tablet
10 mg PO DAILY
cholecalciferol (vitamin D3) [Vitamin D3] 25 mcg (1,000 unit) Tablet
25 mcg PO DAILY
vitamin K2 45 mcg Capsule
45 mcg PO DAILY
turmeric 400 mg Capsule
400 mg PO DAILY
escitalopram oxalate [Lexapro] 20 mg Tablet
20 mg PO DAILY Qty: 0 0RF
pregabalin 50 mg capsule
50 mg PO TID 30 Days Qty: 90 0RF
tramadol 50 mg tablet
50 mg PO Q8H PRN (Reason: Pain) Qty: 14 0RF
Referrals:
Chavo Currie MD [Family Provider, Internal Medicine] - Follow up in 2-3 days
Activity Restrictions/Additional Instructions:
Your chest pain and shortness of breath does not seem to be caused by a cardiac emergency. You tested negative for blood clot. You should continue your anxiety medication. You can take Tylenol for pain as needed. Close follow-up with your family
doctor is recommended. You may be recommended to follow-up with a certified court interpreter as an outpatient. Return to the ER for any worsening symptoms
Interventions
Interventions:
*Risk Screen - Suicide Last Done: 06/02/25 10:38
*General Assessment Last Done: 06/02/25 11:30
*Neglect/Abuse Screening Last Done: 06/02/25 11:30
*ED- Fall Risk Assessment Last Done: 06/02/25 11:30
*ED COVID-19 Vaccine History Last Done: 06/02/25 11:30
ED- Cardiac Assessment Last Done: 06/02/25 11:06
ED- Pulmonary Assessment Last Done: 06/02/25 11:06
Discharge Date and Time
Print Language: YAKUT
[2025-06-02 11:44] LABS: Hematocrit 38.5 % (37.0-47.0); Hemoglobin 13.5 g/dL (12.0-16.0); Mean Corp Hgb Conc. 35.1 g/dL (33.0-37.0); Mean Corpuscular Volume 88.9 fL (81.0-99.0); Nucleated Red Blood Cells % 0 %; Platelet Count 196 10^3/uL (130-400); Red Cell Dist. Width 11.3 % (11.5-14.5)
[2025-06-02 11:58] LABS: HCG, Serum Qualitative Screen Negative
[2025-06-02 12:02] LABS: D-Dimer < 0.27 ug/mlFEU (0.00-0.50)
[2025-06-02 12:03] LABS: ALT (SGPT) 18 U/L (0-35); AST (SGOT) 19 U/L (14-36); Albumin 4.8 g/dl (3.5-5.0); Alkaline Phosphatase 49 U/L (38-126); Blood Urea Nitrogen 14 mg/dl (7-17); Calcium 9.9 mg/dl (8.4-10.2); Carbon Dioxide 25 mmol/L (22-30); Chloride 106 mmol/L (98-107); Estimated Creatinine Clearance 83 ml/min; Glucose 82 mg/dl (70-99); Potassium 4.8 mmol/L (3.5-5.1); Total Protein 7.0 g/dl (6.3-8.2); eGFR > 60.00
[2025-06-02 12:09] LABS: Sodium 136 mmol/L (135-145)
[2025-06-02 12:14] LABS: Troponin I < 0.012 ng/ml
[2025-06-02 13:06] LABS: COVID-19 Antigen Negative (Negative)
[2025-06-02 13:20] VITALS: BP 132/76
== END 2025-06-02 13:20 | disposition home or self-care (01) ==
LOC: EMR 10:32
PROVIDERS: Physician Assistant; EMERGENCY PHYSICIAN Emergency Medicine; FAMILY PHYSICIAN Internal Medicine
DX: R07.89 Other chest pain (principal); R06.02 Shortness of breath; Z87.891 Personal history of nicotine dependence
CPT/HCPCS: 99285; 96374; 71046; 80053; 84484; 84703; 85025; 85379; 87811; 93005

== ENCOUNTER → 2025-07-03 07:39 | Outpatient (REF) | payer BC, SELFPAY | LOC: RAD 07:39 | PROVIDERS: ATTENDING PHYSICIAN Family Medicine; FAMILY PHYSICIAN Internal Medicine | DX: R10.10 Upper abdominal pain, unspecified (principal) | CPT/HCPCS: 76700 ==

== ENCOUNTER 2025-09-17 16:01 | Emergency (ER) | payer BC, SELFPAY ==
[2025-09-17 16:05] VITALS: BP 143/92
--- NOTE | 2025-09-17 18:23 | ED.GENMED ---
History of Present Illness
General
Chief Complaint: Anal/Rectal Problem
Time Seen by Provider: 09/17/25 17:32
History of Present Illness
History of Present Illness:
44-year-old female presents to the emergency department for evaluation of rectal pain for the past 3 days. Denies any trauma or anal receptive intercourse. Denies chronic constipation or rectal bleeding
Past History
Past History
ED Past Medical History: Psychiatric (Bipolar affective disorder) and Other (Ankylosing spondylitis, IgA deficiency, gluten sensitivity. )
Social History
Alcohol: Former
Family History
Family History: Other (Reviewed and noncontributory)
Review of Systems
Review of Systems
Allergies reviewed?: Yes
All Other Systems: ROS reviewed and negative except as documented in HPI and ROS
Phy Exam
Physical Exam
Physical Exam:
GEN: Well appearing, NAD, WDWN
HEENT: Oral mucosa moist, no scleral icterus
Cardiac: Regular rate
Lung: No respiratory distress, no tachypnea
Rectal: Enlarged but nonthrombosed external hemorrhoid as well as small anal fissure at the superior aspect of the anal sphincter
MSK: No gross deformity or injuries
Skin: Good color, no pallor or jaundice, no rashes
Neuro: AO x3, moves all extremities freely
Psych: Calm, cooperative
Course
Vital Signs
Initial and Last Documented VS:
Initial Vital Signs
Temp Pulse Resp BP Pulse Ox
98.2 F 91 16 143/92 99
09/17/25 16:05 09/17/25 16:05 09/17/25 16:05 09/17/25 16:05 09/17/25 16:05
Last Documented Vital Signs
Temp Pulse Resp BP Pulse Ox
98.2 F 91 16 143/92 99
09/17/25 16:05 09/17/25 16:05 09/17/25 16:05 09/17/25 16:05 09/17/25 18:23
MDM/Problems Addressed
MDM/Problems Addressed:
Discussed supportive care for anal fissure, topical vasodilator provided, recommend GI follow-up
*Pulse Oximetry
SaO2: 99
Oxygen Mode of Delivery: Room air
Patient hypoxic: no
*Critical Care Note
Total Time (30-74mins, 75-104mins- exclusive of procedures): Not Applicable
ED Attending Note
-
Portions of this chart may have been created with voice recognition software.� Occasional wrong word or��sound alike� substitutions may have occurred due to the inherent limitations of voice recognition software.
Discharge Plan
Departure
Patient Disposition: Home (Routine Discharge)
Date of Disposition: 09/17/25
Time of Disposition: 18:23
Patient with high blood pressure during this ER visit?: No
Discharge Problem:
Anal fissure
Instructions: Anal Fissure (DC)
Prescriptions:
New
nitroglycerin 0.4 % (w/w) ointment
1 inch MD BID 5 Days Qty: 30 0RF
No Action
acetaminophen [Tylenol] 325 mg Tablet
650 mg PO Q6HPRN PRN (Reason: mild pain)
lamotrigine [Lamictal] 200 mg Tablet
200 mg PO DAILY
trazodone 50 mg Tablet
50 mg PO HSPRN PRN (Reason: sleep)
tizanidine 4 mg Tablet
4 mg PO BIDPRN PRN (Reason: muscle pains)
clonazepam 1 mg Tablet
1 mg PO BIDPRN PRN (Reason: anxiety)
loperamide 2 mg Tablet
2 mg PO Q4HPRN PRN (Reason: gluten allergy)
sumatriptan succinate [Imitrex] 50 mg Tablet
0 mg PO .COMPLEX
Rx Instructions:
take 1 tab at onset of headache; if no relief may repeat 1 tab after at least 2 hrs; max = 4 tabs/24 hr
tramadol 50 mg Tablet
50 mg PO Q8HPRN PRN (Reason: moderate pains)
ascorbic acid (vitamin C) [Vitamin C] 500 mg Tablet
500 mg PO DAILY
buspirone 10 mg Tablet
10 mg PO HS
calcium carbonate [Tums] 200 mg calcium (500 mg) Tablet,Chewable
200 mg PO BIDPRN PRN (Reason: gerd)
calcium polycarbophil [FiberCon] 625 mg Tablet
625 mg PO DAILY
vitamin B complex Tablet
1 tab PO DAILY
nabumetone 500 mg Tablet
500 mg PO BID
escitalopram oxalate [Lexapro] 10 mg Tablet
10 mg PO DAILY
cholecalciferol (vitamin D3) [Vitamin D3] 25 mcg (1,000 unit) Tablet
25 mcg PO DAILY
vitamin K2 45 mcg Capsule
45 mcg PO DAILY
turmeric 400 mg Capsule
400 mg PO DAILY
escitalopram oxalate [Lexapro] 20 mg Tablet
20 mg PO DAILY Qty: 0 0RF
pregabalin 50 mg capsule
50 mg PO TID 30 Days Qty: 90 0RF
tramadol 50 mg tablet
50 mg PO Q8H PRN (Reason: Pain) Qty: 14 0RF
Referrals:
Chavo Currie MD [Family Provider, Internal Medicine]
Activity Restrictions/Additional Instructions:
Follow up with your digital product specialist
Interventions
Interventions:
*Risk Screen - Suicide Last Done: 09/17/25 16:05
*Neglect/Abuse Screening Last Done: 09/17/25 16:05
*ED COVID-19 Vaccine History Last Done: 09/17/25 17:40
*ED Influenza Vaccine History Last Done: 09/17/25 17:40
*Nursing Disposition Last Done: 09/17/25 18:34
ED-Skin Assessment Last Done: 09/17/25 17:40
Discharge Date and Time
Discharge Date/Time: 09/17/25 18:35
Print Language: ARABIC
== END 2025-09-17 18:35 | disposition home or self-care (01) ==
LOC: EMR 16:01
PROVIDERS: EMERGENCY PHYSICIAN Emergency Medicine; FAMILY PHYSICIAN Internal Medicine
DX: K60.2 Anal fissure, unspecified (principal)
CPT/HCPCS: 99282